=== PATIENT | male | born 1960 | race Caucasian/White ===

== ENCOUNTER 2021-08-07 14:14 | Outpatient (REF) | payer BC, SELFPAY ==
--- NOTE | ~2021-08-07 | XR_ITS ---
EXAMINATION: XR CHEST CLINICAL INFORMATION: Cough COMPARISON: None TECHNIQUE: 2 views of the chest were obtained. FINDINGS: There is no confluent acute parenchymal disease, pneumothorax, or pleural effusion. Heart normal size. No evidence of pulmonary edema. There are 2 densities seen about the right upper lobe which may represent regions of scarring or minimal focal parenchymal disease. XR/XR chest 2V IMPRESSION: No confluent acute parenchymal disease identified. 2 densities about the right upper lobe likely related to scarring.
== END 2021-08-07 14:15 | disposition home or self-care (01) ==
LOC: HO.HMGCX 14:14
PROVIDERS: Visit Provider Physician Assistant
DX: R05.9 Cough, unspecified (principal)
CPT/HCPCS: 71046

== ENCOUNTER 2021-12-06 11:50 | Outpatient (REF) | payer BC, SELFPAY ==
[2021-12-06 12:15] LABS: Binax Internal Control QC Valid; Binax Now Covid-19 Ag Negative (Negative)
== END 2021-12-06 11:51 | disposition home or self-care (01) ==
LOC: HO.HMGCLDS 11:50
PROVIDERS: Visit Provider Internal Medicine
DX: Z20.822 Contact with and (suspected) exposure to COVID-19 (principal); J06.9 Acute upper respiratory infection, unspecified
CPT/HCPCS: 87811

== ENCOUNTER 2023-09-09 14:39 | Outpatient (AMB) | payer BC, SELFPAY ==
[2023-09-09 14:42] VITALS: BP 130/70; PULSE 70; TEMP 36.6; O2SAT 95
--- NOTE | 2023-09-09 14:42 | AM.OFFWIN_ITS ---
Intake Vital Signs 09/09/23 14:42 Height 61 ft Weight 265 lb BMI 0.3 BP 130/70 Blood Pressure Location Rt brachial Position Sitting Pulse 70 Pulse Source Pulse Oximeter Temp 97.9 F Temp Source Oral Pulse Oximetry (%) 95 Oxygen Delivery Method Room Air Intake Visit Reasons: EP LT ear ache/Headache/ Dizzy Intake Note: Pt is here today for Lt ear ache/ headache, and dizziness. Pt states symptoms started this morning. Patient Tobacco Use Status: Never used Tobacco Allergies azithromycin [AZITHROMYCIN] Allergy (Intermediate, Verified 09/09/23 14:44) HIVES levofloxacin Allergy (Unknown, Verified 09/09/23 14:44) leg cramps lisinopril Adverse Reaction (Mild, Verified 09/09/23 14:44) Hives Erythrocin Allergy (Unknown, Uncoded 12/06/21 11:22) rash latex Allergy (Unknown, Uncoded 12/06/21 11:22) rash Do you need a note to return to daycare/school/sports/work: No HPI HPI Comments History of Present Illness0 Details 62 y/o female [facility]/o nasal congestion and left ear pain since this morning. Pt has h/o KRISTIN and has an Appointment with ENT for testing. Pt has an upcoming appointment Head/Sinus CT- Scan to r/o Infections, Polyps. [facility] Social History Patient Tobacco Use Status: Never used Tobacco Review of Systems Const All systems reviewed & are unremarkable except as noted in HPI and below Physical Exam Vital Signs: Last Vital Signs Temp 97.9 F 09/09/23 14:42 Pulse 70 09/09/23 14:42 BP 130/70 09/09/23 14:42 Pulse Ox 95 09/09/23 14:42 Oxygen Delivery Method Room Air 09/09/23 14:42 BMI result Body Mass Index 0.3 Const General: comfortable and no acute distress Orientation/consciousness: patient oriented x3 HEENT Head: Yes normocephalic Ears: external ears normal and TM abnormal with fluid behind the TM bilateral; not bulging, not bullous, not with effusion, not erythematous, not perforated and not retracted General nose exam: Abnormal mucous membranes and turbinates present boggy and erythematous Face and sinus: Yes sinuses nontender Mouth: moist mucous membranes Throat: Yes posterior oropharynx normal Resp Effort & Inspection: normal respiratory effort Auscultation: clear to auscultation bilaterally, no crackles, no rales, no rhonchi, no wheezes and no rubs tactile fremitus present: tactile fremitus absent Cardio Rate: regular rate Rhythm: regular rhythm Neuro General: patient oriented x3 Assessment & Plan Assessment & Plan (1) URI, acute: Comment: Code(s): J06.9 - Acute upper respiratory infection, unspecified Plan: - Vitals WNL - No ear infection, fluid behind both ears - Acetaminophen for pain relief - F/U with ENT as scheduled (12/06/23). Coding Level of Care Code Est Pt Level 3 (70338) Diagnoses URI, acute J06.9 Time Spent (min) 15
== END 2023-09-09 16:53 | disposition home or self-care (01) ==
PROVIDERS: PCP Physician Assistant Medical; Visit Provider Nurse Practitioner Family
DX: J06.9 Acute upper respiratory infection, unspecified (principal)
CPT/HCPCS: 99213

== ENCOUNTER 2024-01-07 13:33 | Outpatient (AMB) | payer BC, SELFPAY ==
--- OUTSIDE RECORDS SUMMARY | 2024-01-07 13:35 | XMS_ITS | Continuity of Care Document ---
Author Organization [facility] Adrianna hero Address [address] [place] [address] [address] [place] [address]- Care Team Providers Care Hand Brush Filler Name Role Phone Laith Falk MD Primary Care Physician Encounter [facility] Date(s): 03/17/23 - 04/16/23 [facility] [address] [place] [address]- Allergies, Adverse Reactions, Alerts Substance Reaction Severity Status clindamycin Active erythromycin Active Latex Persistent Moderate Active levoFLOXacin Muscle weakness of limb Acti ve Medications atorvastatin 20 mg oral tablet 1 tablet = 20 mg, By Mouth, Daily, # 30 tablet, 0 Refills, Maintenance, 06/22/21 10:16:00 EST, Tablet, Partial fill upon patient request if the prescription is for a schedule II opioid drug. Start Date: 06/22/21 Status: Ordered calcium (as carbonate)-vitamin D 500 mg-400 intl units oral tablet 1 tablet, By Mouth, 2 times a day, # 300 tablet, 0 Refills, Maintenance, 06/22/21 10:49:00 EST, Tablet, Partial fill upon patient request if the prescription is for a schedule II opioid drug. Start Date: 06/22/21 Status: Ordered DilTIAZem (Eqv-Cardizem CD) 180 mg/24 hours oral capsule, extended release 1 capsule = 180 mg, By Mouth, Daily, 0 Refills, Maintenance, 06/22/21 10:16:00 EST, Partial fill upon patient request if the prescription is for a schedule II opioid drug. Start Date: 06/22/21 Status: Ordered folic acid 1 mg oral tablet 1 mg, 1, tablet, By Mouth, Daily, # 30 tablet, Refills 0, Maintenance, 06/22/21 10:18:00 EST, Partial fill upon patient request if the prescription is for a schedule II opioid drug. Start Date: 06/22/21 Status: Ordered lisinopril 10 mg oral tablet 10 mg, 1, tablet, By Mouth, Daily, # 30 tablet, Refills 0, Maintenance, 06/22/21 10:13:00 EST, Partial fill upon patient request if the prescription is for a schedule II opioid drug. Start Date: 06/22/21 Status: Ordered lisinopril 40 mg oral tablet 1 tablet = 40 mg, By Mouth, Daily at bedtime, # 30 tablet, 0 Refills, Maintenance, Tablet Start Date: 12/19/12 Status: Ordered lorazepam 0.5 mg oral tablet 1 tablet = 0.5 mg, By Mouth, 2 times a day, PRN as needed for anxiety, 0 Refills, Maintenance, Tablet Start Date: 12/19/12 Status: Ordered Magnesium Carbonate = 400 mg, By Mouth, Daily, 0 Refills, Maintenance, 06/22/21 10:48:00 EST, Partial fill upon patientrequest if the prescription is for a schedule II opioid drug. Start Date: 06/22/21 Status: Ordered metformin 500 mg oral tablet 1 tablet = 500 mg, By Mouth, 2 times a day, # 180 tablet, 0 Refills, Maintenance, Tablet Start Date: 12/19/12 Status: Ordered pravastatin 20 mg oral tablet 1 tablet = 20 mg, By Mouth, Daily at bedtime, # 30 tablet, 0 Refills, Maintenance, Tablet Start Date: 12/19/12 Status: Ordered ProAir HFA 2 puffs, Inhalation, Every 6 hours, PRN Wheezing/Shortness of Breath, 0 Refills, Maintenance Start Date: 12/19/12 Status: Ordered thiamine 100 mg oral tablet 100 mg, 1, tablet, By Mouth, Daily, # 7 tablet, Refills 0, Maintenance, 06/22/21 10:17:00 EST, Partial fill upon patient request if the prescription is for a schedule II opioid drug. Start Date: 06/22/21 Stop Date: 06/29/21 Status: Ordered Problem List Condition Confirmation Course Effective Dates Status Health St [facility] Informant Obese class I Confirmed Active Social History Social History Type Response Smoking Status Never (less than 100 in lifetime) entered on: 08/06/22 Sex Patient Care team information Care Team Personnel Name: Laith Falk MD Position: [facility] Physician (General Medicine) Member Role: PCP Address: Address: [address] [place] [address] [place] [address]- Care Team Related Persons Name: NAYANAMICHI JULIET Address: [address] [place] [address]
--- NOTE | 2024-01-07 13:54 | AM.OFFWIN_ITS ---
Intake Vital Signs 01/07/24 13:55 Height 6 ft 1 in Weight 259 lb BMI 34.2 BP 128/66 Blood Pressure Location Lt brachial Position Sitting Pulse 60 Pulse Source Pulse Oximeter Temp 98.1 F Temp Source Oral Pulse Oximetry (%) 98 Oxygen Delivery Method Room Air Intake Visit Reasons: pain in left ear Intake Note: PT c/o LT ear pain. started 2 days ago. Worse when swallowing Patient Tobacco Use Status: Former Tobacco user Allergies azithromycin [AZITHROMYCIN] Allergy (Intermediate, Verified 01/07/24 13:55) HIVES levofloxacin Allergy (Unknown, Verified 01/07/24 13:55) leg cramps lisinopril Adverse Reaction (Mild, Verified 01/07/24 13:55) Hives Erythrocin Allergy (Unknown, Uncoded 01/07/24 13:55) rash latex Allergy (Unknown, Uncoded 01/07/24 13:55) rash Do you need a note to return to daycare/school/sports/work: No HPI HPI Comments History of Present Illness Details 63 y/o male patient who presents to the walk in clinic with c/o left ear pain x 2 days. Denies any URI symptoms. [facility] Social History Patient Tobacco Use Status: Former Tobacco user Review of Systems Const All systems reviewed & are unremarkable except as noted in HPI and below Physical Exam Vital Signs: Last Vital Signs Temp 98.1 F 01/07/24 13:55 Pulse 60 01/07/24 13:55 BP 128/66 01/07/24 13:55 Pulse Ox 98 01/07/24 13:55 Oxygen Delivery Method Room Air 01/07/24 13:55 BMI result Body Mass Index 34.2 Const General: comfortable and no acute distress Nutritional Appearance: obese Orientation/consciousness: patient oriented x3 HEENT Head: Yes normocephalic Ears: external ears normal and TM abnormal bulging on the left, erythematous on the left, with fluid behind the TM bilateral and retracted on the left General nose exam: Normal nasal mucous membranes and turbinates present Face and sinus: Yes sinuses nontender Mouth: moist mucous membranes Throat: Yes posterior oropharynx normal Resp Effort & Inspection: normal respiratory effort and able to speak in complete sentences Auscultation: clear to auscultation bilaterally, no crackles, no rales, no rhonchi and no wheezes Cardio Heart sounds: S1 normal heart sound present and S2 normal heart sound present Neuro General: patient oriented x3, gait normal and moves all extremities Psych Speech and movement: Normal speech and movement present Assessment & Plan Assessment & Plan (1) Otogenic otalgia of left ear: Code(s): H92.02 - Otalgia, left ear Plan: Acetaminophen and Ibuprofen for pain relief Take medicine as directed. Medications: New cetirizine (Zyrtec) 10 mg PO DAILY PRN 90 tabs 0RF allergy symptoms H92.02 - Otalgia, left ear ciprofloxacin-dexamethasone 0.3-0.1 % 4 drps otic (ear) left BID 7.5 mL 0RF 7 days H92.02 - Otalgia, left ear Coding Level of Care Code Est Pt Level 3 (69934) Diagnoses Otogenic otalgia of left ear H92.02 Time Spent (min) 15
[2024-01-07 13:55] VITALS: BP 128/66; PULSE 60; TEMP 36.7; O2SAT 98; BMI 34.2
== END 2024-01-07 14:16 | disposition home or self-care (01) ==
PROVIDERS: PCP Physician Assistant Medical; Visit Provider Nurse Practitioner Family
DX: H92.02 Otalgia, left ear (principal)
CPT/HCPCS: 99213

== ENCOUNTER 2024-02-17 15:39 | Outpatient (AMB) | payer BC, SELFPAY ==
--- NOTE | 2024-02-17 16:09 | MHC.OFFWIV ---
Intake Vital Signs 02/17/24 16:11 Height 6 ft 1 in Weight 257 lb BMI 33.9 BP 118/60 Blood Pressure Location Rt brachial Position Sitting Pulse 68 Pulse Source Pulse Oximeter Temp 98.2 F Temp Source Oral Pulse Oximetry (%) 98 Oxygen Delivery Method Room Air Intake Visit Reasons: EP RT side AB pain/Stomach bloating/Diarrhea Intake Note: pt c/o RT side abdominal pain since Wednesday, bloating and diarrhea Started this morning Patient Tobacco Use Status: Former Tobacco user Allergies azithromycin [AZITHROMYCIN] Allergy (Intermediate, Verified 02/17/24 16:14) HIVES levofloxacin Allergy (Unknown, Verified 02/17/24 16:14) leg cramps lisinopril Adverse Reaction (Mild, Verified 02/17/24 16:14) Hives Erythrocin Allergy (Unknown, Uncoded 02/17/24 16:14) rash latex Allergy (Unknown, Uncoded 02/17/24 16:14) rash Do you need a note to return to daycare/school/sports/work: No HPI HPI Comments History of Present Illness Details 63 y/o male patient who presents to the walk in clinic with c/o left lower abdominal pain since Wednesday. Reports one episode of diarrhea this morning, but otherwise feels bloated and gassy. He does have h/o Fatty liver with elevated LFTs. [facility] Social History Patient Tobacco Use Status: Former Tobacco user Review of Systems Const All systems reviewed & are unremarkable except as noted in HPI and below Physical Exam Vital Signs: Last Vital Signs Temp 98.2 F 02/17/24 16:11 Pulse 68 02/17/24 16:11 BP 118/60 02/17/24 16:11 Pulse Ox 98 02/17/24 16:11 Oxygen Delivery Method Room Air 02/17/24 16:11 BMI result Body Mass Index 33.9 Const General: cooperative, comfortable and no acute distress Nutritional Appearance: obese Orientation/consciousness: patient oriented x3 Resp Effort & Inspection: normal respiratory effort and able to speak in complete sentences Auscultation: clear to auscultation bilaterally Cardio Heart sounds: S1 normal heart sound present and S2 normal heart sound present GI Inspection: Yes obesity Palpation (GI): Soft to palpation, not firm, Tenderness to palpation present (GI) in the LLQ; not periumbilically, no guarding, not rigid, No hepatosplenomegaly present, no hernias and no masses Auscultation: Hyperactive bowel sounds present Rectal Exam - Male: Yes deferred Neuro General: patient oriented x3, gait normal and moves all extremities Psych Speech and movement: Normal speech and movement present Assessment & Plan Assessment & Plan (1) Left lower quadrant abdominal pain: Code(s): R10.32 - Left lower quadrant pain Plan: Weight loss Low fat and low sugar diet Pain probably related to Fatty liver and constipation Advised to f/u with PCP if pain continues Plan Ordered Reglan and Senna-Marian Medications: New sennosides-docusate sodium 8.6-50 mg (Laxative Stool Softener With Senna) 1 tab-cap PO BEDTIME 20 tabs 0RF R10.32 - Left lower quadrant pain metoclopramide HCl (Reglan) 10 mg PO Q6H PRN 20 tabs 0RF nausea and vomiting K59.00 - Constipation, unspecified, R10.32 - Left lower quadrant pain Coding Level of Care Code Est Pt Level 3 (57337) Diagnoses Left lower quadrant abdominal pain R10.32 Time Spent (min) 15
[2024-02-17 16:11] VITALS: BP 118/60; PULSE 68; TEMP 36.8; O2SAT 98; BMI 33.9
== END 2024-02-17 16:47 | disposition home or self-care (01) ==
PROVIDERS: PCP Physician Assistant Medical; Visit Provider Nurse Practitioner Family
DX: R10.32 Left lower quadrant pain (principal)
CPT/HCPCS: 99213

== ENCOUNTER 2024-06-03 11:33 | Outpatient (AMB) | payer BC, SELFPAY ==
--- OUTSIDE RECORDS SUMMARY | 2024-06-03 11:35 | XMS_ITS | Data Portability ---
Author Organization [facility], [address] Address [address] [place] [address] Assessment No assessment recorded. Plan of Treatment Reminders Order Date Submit Date Provider Last Modified By Organization Details Last Modified Time Details Appointments None recorded. Lab None recorded. Referral None recorded. Procedures None recorded. Surgeries None recorded. Imaging None recorded. Medication Orders triamterene 37.5 mg-hydrochl orothiazide 25 mg tablet 2021 [id number], [address], [place], [id number], 16:46:21 prednisone 10 mg tablet 2021 [facility] [employer] #[id number], [address], [place], [id number], 16:46:19 Patient TargetsNo targets recorded. Patient Instructions Encounter Date Encounter Id Patient Instructions Last Modified By Organization Details Last Modified Time 05/12/2022 [id number] angioedema: care instructions [email or web address] Not available 05/12/2022 16:46:08 I want you to stop the Lisinopril - because that may be causing your lips to swell and the HIVES. I know you have been on that medication for a while but this would be the most likely medication on your list to cause this reaction. I am going to start you on a different medication to help control you B/P but you need to call you doctor tomorrow to discuss a follow up visit to evaluate you B/P treatment plan. Please continue to monitor you blood pressure. Continue Benedryl. If you d/C this medication and the lips swell again it may be something you are eating or drinking. Please keep a food journal. You were prescribed Prednisone - Here is some general Information regarding this medication. 1. Make sure you take with Food 2. Do not take right before bedtime -this should be taken during the day because it may make you a little more wired. May keep you from sleeping. 3. Prednisone will increase glucose -so if you are a diabetic then you will need to monitor your glucose closely. Please d/c if glucose goes above 300. 4. Do not take this medication with Ibuprofen ER Immediately if you develop: 1. Shortness of breath 2. Throat Swelling 3. Wheezing 4. Swelling anywhere else on your body. Not available 05/12/2022 16:46:06 Reason for Referral None Reported. Problems Name Problem SNOMED Code Status Onset Date Resolution Date Notes Provider Name and Address Organization Details Recorded Time Diabetes mellitus 21312465 Active 2021 LILA gilmore [place] - [facility] 2 16:07:17 Hypertensive disorder 26658285 Active 2021 LILA gilmore, [place] - [facility] 2 16:07:24 Hyperlipidemia 85277843 Active 2021 LILA gilmore PA - [facility] 2 16:07:32 Gastroesophage al reflux disease 180817924 Active 2021 LILA gilmore, [place] - [facility] 2 16:07:38 Problem Notes None recorded. Procedures Surgical History Date Name Laterality Status Provider Name and Address Organization Details Recorded Time Appendectomy completed LILA HAGEN PA - [facility] 05/12/2022 16:09:22 manipulation of displaced nasal septum completed LILA HAGEN PA - [facility] 05/12/2022 16:09:31 Exploration of abdomen completed LILA HAGEN PA - [facility] 05/12/2022 16:09:59 Imaging Results None recorded. Procedure Notes None recorded. Medical Equipment None Reported. Allergies Allergen ID Allergen Name Allergen Category Reaction Reaction Severity Criticality Documentation Date Start Date Code Code System Note Provider Name and Address Organization Details Recorded Time 57784 erythromy rico medicatio n rash Not available Not available 05/12/2022 4053 RxNorm LILA LANDEROSMERRY null, PA - [facility] 2 16:01:28 76660 latex environme nt,medica tion rash Not available Not available 05/12/2022 96345 91 RxNorm LILA LANDEROSMERRY null, PA - [facility] 2 16:01:39 06657 levofloxa rico medicatio n muscle cramps Not available Not available 05/12/2022 83596 RxNorm LILA LANDEROSMARLENEND null, PA - [facility] 2 16:01:55 98211 clindamyc in Not available other Not available Not available 05/12/2022 2582 RxNorm LILA HAGEN null, PA - [facility] 2 16:02:18 Medications Name Sig Start Date Stop Date Status Note LastModified by Organization Details LastModified Time prednisone 10 mg tablet 3 pills po qd x 2 days, 2 pills po qd x 2 days, 1 pill po qd x 2 days 2021 active Not Available Not Available Not Avai lable diltiazem CD 180 mg capsule,exte nded release 24 hr Take 1 capsule every day by oral route. active Not Available Not Available No t Available triamterene 37.5 mg-hydrochlo rothiazide 25 mg tablet TAKE 1 TABLET BY MOUTH EVERY DAY active Not Available Not Available No t Available fluticasone propionate 50 mcg/actuatio n nasal spray,suspen damien [facility] 1 spray every day by intranasal route. active Not Available Not Available No t Available atorvastatin active Not Available Not Available Not Available omeprazole active Not Available Not Av ailable Not Available lorazepam active Not Available Not Simona ilable Not Available folic acid active Not Available Not Av ailable Not Available naproxen active Not Available Not Avai lable Not Available lisinopril active Not Available Not Av ailable Not Available glipizide active Not Available Not Simona ilable Not Available metformin active Not Available Not Simona ilable Not Available gabapentin active Not Available Not Av ailable Not Available thiamine HCl (bulk) active Not Available Not Available Not Available diclofenac sodium 1.5 % topical drops-mentho l 10 % roll-on combo pack active Not Available Not Available N ot Available albuterol sulf 90 mcg/actuatio n breath activated powder inhaler,sens or Inhale 2 puffs every 4 hours by inhalation route. active Not Available Not Available No t Available FreeStyle Chapo 2 Sensor active Not Available Not Available Not Available Vitals Date Recorded Body height Body mass index (BMI) Body weight Body temperature Respiratory rate Oxygen saturation Oxygen saturation in Arterial blood by Pulse oximetry Heart rate Systolic blood pressure Diastolic blood pressure Provider Name and Address Organization Details Last Updated DateTime 2 185.42 cm 35 kg/m2 911202. 98 g 97.4 [degF] 18 /min 99 % 99 % 75 /min 148 mm[Hg] 80 mm[Hg] LILA ALMEIDA [facility] 16:11:55 Social History Question Answer Notes LastModified by [employer] Details LastModified Time Tobacco Smoking Status Never Smoker LILA gilmore PA [facility] 05/12/2022 16:09:09 What Is Your Level Of Alcohol Consumption? Occasional Information not available 05/12/2022 Have You Had Direct Contact, Or Contact During Intimacy, With Monkeypox Rash, Scabs, Or Body Fluids From A Person With Monkeypox? No Information not available 05/12/2022 Do You Use Any Illicit Or Recreational Drugs? No Information not available 05/12/2022 Have You Recently Traveled Abroad? No Information not available 05/12/2022 Sex: Unknown Functional Status None recorded. Mental Status None recorded. Family History Relationship Description Onset Age of this Age Resolved Age Notes LastModified by Organization Details LastModified Time Father No current problems or disability Not available 11/2021 16:08:49 Mother No current problems or disability Not available 11/2021 16:08:49 Medical History No medical history recorded. 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 T78.3XXA Hypertensive disorder 38 143267 I10 Health Concerns Section Related Observation LastModified by Organization Detai ls LastModified Time None Recorded Concern Status LastModified by Organization Details LastModified Time None Recorded Advance Directives Directive None Recorded Payers Encounter Date Sequence Insurance Name Policy Number Policy Valle Covered Member ID Valle Member ID Guarantor Name 10/14/2019 1 [employer] - [place] (HMO) [id number] Jhonathan Blas [id number] 1 Jhonathan Blas 05/12/2022 1 [place] [employer] [place]PP[place]) Jhonathan Blas [id number] Jhonathan Blas Notes Date Note Type Note Provider Name and Address Organization Details Recorded Time 05/12/2022 text/html Facial ProblemReported bypatient.Onset/Timin g:date of onset:; 05/12/2022 when he woke up. Location:face bilateral Quality:tingling Severity:improving Context:diabetes Alleviating factors:Benedryl helped. Aggravating factors:none Associated Symptoms:no tinnitius; no nausea; no vomiting; no dizziness; no pain in the jaw; no nasal congestion; no difficulty chewing; no tenderness; no facial pain;erythema;swellin gNotes:The patient states that he woke up this morning and his lips were swollen. Mild tingling and numbness. Was affecting speach. Took Benedryl and it has reduced. The patient reports that since he got skin tags removed he has been having sporatic hives on his abdomen/trunk/back/fl anks. The patient is on lisinopril. He has not started any new medications. JUAN PABLO BEAL [facility] [place], [address], [place] - [facility] 05/13/2022 08:31:58
--- NOTE | 2024-06-03 12:12 | AM.OFFWIN_ITS ---
Intake Vital Signs 06/03/24 12:13 Weight 254 lb BP 128/78 Blood Pressure Location Lt brachial Position Sitting Pulse 82 Pulse Source Pulse Oximeter Temp 97.7 F Temp Source Oral Pulse Oximetry (%) 97 Oxygen Delivery Method Room Air Intake Visit Reasons: EP Sore throat, cough Intake Note: Patient here for sore throat and cough that has been present for about 2 weeks. Patient Tobacco Use Status: Former Tobacco user Allergies azithromycin [AZITHROMYCIN] Allergy (Intermediate, Verified 06/03/24 12:14) HIVES levofloxacin Allergy (Unknown, Verified 06/03/24 12:14) leg cramps lisinopril Adverse Reaction (Mild, Verified 06/03/24 12:14) Hives Erythrocin Allergy (Unknown, Uncoded 06/03/24 12:14) rash latex Allergy (Unknown, Uncoded 06/03/24 12:14) rash Do you need a note to return to daycare/school/sports/work: No HPI EP Sore throat, cough HPI Details Patient is a 63-year-old male with controlled diabetes and COPD, and is about 2 weeks out with upper respiratory infection symptoms, that are now starting to cause increased cough. [facility] Social History Patient Tobacco Use Status: Former Tobacco user Review of Systems Const All systems reviewed & are unremarkable except as noted in HPI and below Physical Exam Vital Signs: Last Vital Signs Temp 97.7 F 06/03/24 12:13 Pulse 82 06/03/24 12:13 BP 128/78 06/03/24 12:13 Pulse Ox 97 06/03/24 12:13 Oxygen Delivery Method Room Air 06/03/24 12:13 Results AMB Rapid Strep AMB Rapid Strep Negative Last Edit by RICHARD Oneill on 06/03/24 14:21 Results Reviewed Results Reviewed: Plain film chest x-ray unremarkable Assessment & Plan Assessment & Plan Plan 63-year-old male with COPD and type 2 diabetes, overall stable and is not on maintenance medication for the COPD. He reports that he started with upper respiratory infection symptoms over a week ago, and he is now experiencing increased cough. I think it is due to postnasal drip, likely from serous otitis media. His lung sounds are good and oxygen saturation is 97% on room air. His respiratory status is adequate, with no work of breathing. He requests chest x-ray today, which shows no acute changes. His flu COVID and RSV PCR results are pending. We discussed a trial of Esdras Alexis, which she is amenable to. I also advised that he start guaifenesin if his mucous starts to get thicker. He should follow up if he starts to develop any chest congestion symptoms, such as burning or pressure in the chest, shortness of breath, productive cough with mucus from the lungs, or other significant associated symptoms. He knows to go to the emergency room with worrisome symptoms. Orders: Orders SARS-CoV2/FLU/RSV Today J06.9 - Acute upper respiratory infection, unspecified BinaxNOW Covid-19 Ag Today Z20.822 - Contact with and (suspected) exposure to COVID-19 XR chest 2V Today R05.9 - Cough, unspecified AMB Rapid Strep Screen Today Z13.9 - Encounter for screening, unspecified Medications: New benzonatate 200 mg PO BID-TID PRN 20 caps 0RF cough Coding Level of Care Code Est Pt Level 4 (55488)
[2024-06-03 12:13] VITALS: BP 128/78; PULSE 82; TEMP 36.5; O2SAT 97
== END 2024-06-03 13:14 | disposition home or self-care (01) ==
PROVIDERS: PCP Physician Assistant Medical; Visit Provider Physician Assistant Medical
DX: Z13.9 Encounter for screening, unspecified (principal)

== ENCOUNTER 2024-06-03 11:33 | Outpatient (REF) | payer BC, SELFPAY ==
--- NOTE | ~2024-06-03 | XR_ITS ---
CLINICAL HISTORY: R05.9 - Cough, unspecified 2 view chest x-ray Comparison: None Findings: The lungs are clear. Normal heart size. Elongation of the aorta. No acute fracture. IMPRESSION: 1. No acute findings. This document has been electronically signed by: Adrienne Harmon MD on 06/03/2024 14:15:42
[2024-06-03 15:12] LABS: Influenza A PCR NEGATIVE (Negative); Influenza B PCR NEGATIVE (Negative); Resp Syncy Virus RNA Qual PCR NEGATIVE (Negative); SARS COV2 PCR INHOUSE NEGATIVE (Negative)
== END 2024-06-03 11:34 | disposition home or self-care (01) ==
LOC: HO.HMGCX 11:33
PROVIDERS: PCP Physician Assistant Medical; Visit Provider Physician Assistant Medical
DX: R05.9 Cough, unspecified (principal); J06.9 Acute upper respiratory infection, unspecified
CPT/HCPCS: 0241U; 71046; 87880

== ENCOUNTER → 2024-06-03 13:06 | Outpatient (BNV) | payer BC, SELFPAY | PROVIDERS: PCP Physician Assistant Medical; Visit Provider Radiology Diagnostic Radiology | DX: R05.9 Cough, unspecified (principal) | CPT/HCPCS: 71046 ==

== ENCOUNTER → 2024-06-21 15:15 | Outpatient (BNVA) | payer BC, SELFPAY | PROVIDERS: PCP Physician Assistant Medical ==

== ENCOUNTER → 2024-06-21 15:15 | Outpatient (AMB) | payer BC, SELFPAY ==
[2024-06-21 15:17] VITALS: BP 140/80; PULSE 77; O2SAT 98
--- NOTE | 2024-06-21 15:17 | MHC.OFFWIV ---
Intake Vital Signs 06/21/24 15:17 Weight 255 lb BP 140/80 H Blood Pressure Location Lt brachial Position Sitting Pulse 77 Pulse Source Pulse Oximeter Pulse Oximetry (%) 98 Oxygen Delivery Method Room Air Intake Visit Reasons: EP-b/l hand numbness, tingling, pain Intake Note: <del>P</del>atient here for bilat hand numbness and tingling that has been present for about 1 week Patient Tobacco Use Status: Former Tobacco user Allergies azithromycin [AZITHROMYCIN] Allergy (Intermediate, Verified 06/21/24 15:24) HIVES levofloxacin Allergy (Unknown, Verified 06/21/24 15:24) leg cramps lisinopril Adverse Reaction (Mild, Verified 06/21/24 15:24) Hives Erythrocin Allergy (Unknown, Uncoded 06/21/24 15:24) rash latex Allergy (Unknown, Uncoded 06/21/24 15:24) rash HPI HPI Comments History of Present Illness Details History of Present Illness - The patient is a 63-year-old male presenting with hand issues, specifically stiffness, numbness, and tingling consistent with Carpal Tunnel Syndrome. - Symptoms are bilateral with greater severity in the left hand. - There is preceding management with wrist braces and steroid injections, and worsening symptom severity noted. - Previous occupational history does not suggest repetitive strain activities as a contributory factor. - Current management is complicated by Stage 3 Chronic Kidney Disease. Physical Exam General: Cooperative, healthy appearing, comfortable, no acute distress and well developed Orientation: Patient oriented x3 Limitations: Full range of motion, but with stiffness and numbness in both hands Head: Normal to inspection Ears: Hearing grossly normal bilaterally Nose: Normal external nose present Face and sinus: Normal facial exam Eyes: Appearance normal, both eyes and all related structures Neck: Normal visual inspection and Yes full ROM Respiratory: Normal respiratory effort and able to speak in complete sentences. Clear to auscultation bilaterally Cardiovascular: Regular rate and rhythm. Normal S1 and S2 Skin: No rashes or lesions noted Neuro: Patient oriented x3 Extremities: as below [facility] Social History Patient Tobacco Use Status: Former Tobacco user Review of Systems Const All systems reviewed & are unremarkable except as noted in HPI and below Physical Exam Vital Signs: Last Vital Signs Pulse 77 06/21/24 15:17 BP 140/80 H 06/21/24 15:17 Pulse Ox 98 06/21/24 15:17 Oxygen Delivery Method Room Air 06/21/24 15:17 Extrem Right upper extremity: wrist Details: normal to inspection, tenderness Location: of the distal radius, of the dorsal wrist and of the volar wrist; not of the anatomic snuffbox, swelling and normal ROM and Extremity exam: right hand Details: normal to inspection, neuromotor exam normal, neurosensory exam abnormal and normal ROM of fingers Left upper extremity: wrist and hand Details: normal to inspection, normal capillary refill, neuromotor exam normal, neurosensory exam abnormal, tendon exam normal and normal ROM of fingers; no unusual warmth, no swelling, no abrasions, no lacerations and no ecchymosis Assessment & Plan Assessment & Plan (1) Wrist sprain: Code(s): S63.509A - Unspecified sprain of unspecified wrist, initial encounter Qualifiers: Encounter type: initial encounter Laterality: right Qualified Code(s): S63.501A - Unspecified sprain of right wrist, initial encounter Plan: The approach for Carpal Tunnel Syndrome will prioritize the relief of symptoms and explore surgical options. I recommend continued use of wrist braces, especially during nighttime, to mitigate symptoms. Naproxen will be prescribed cautiously, considering the patient's renal function. Coordination with a hand surgeon for potential operative management is advisable given the chronic nature and progression of symptoms. We will ensure to balance symptom management while monitoring renal function closely. The patient should consider contacting a hand surgeon for further evaluation and management options. Patient given wrist splints for each wrist. Patient was informed and verbally consented to the use of an ambient scribe for clinic note documentation during this visit. (2) Left wrist sprain: Code(s): S63.502A - Unspecified sprain of left wrist, initial encounter Qualifiers: Encounter type: initial encounter Qualified Code(s): S63.502A - Unspecified sprain of left wrist, initial encounter Plan: as above Medications: New naproxen 500 mg PO Q12H PRN 10 tabs 0RF pain Coding Level of Care Code New Pt Level 3 (49361) Diagnoses Sprain of right wrist, initial encounter S63.501A Encounter type: initial encounter Laterality: right Sprain of left wrist, initial encounter S63.502A Encounter type: initial encounter
--- OUTSIDE RECORDS SUMMARY | 2024-06-21 18:02 | XMS_ITS | Data Portability ---
Author Organization JUAN PABLO [facility], [address] Address [address] [place] [address] Assessment No assessment recorded. Plan of Treatment Reminders Order Date Submit Date Provider Last Modified By Organization Details Last Modified Time Details Appointments None recorded. Lab None recorded. Referral None recorded. Procedures None recorded. Surgeries None recorded. Imaging None recorded. Medication Orders triamterene 37.5 mg-hydrochl orothiazide 25 mg tablet 2021 [facility] #[id number], [address], [place], [phone], 16:46:21 prednisone 10 mg tablet 2021 [facility] #[id number], [address], [place], [phone], 16:46:19 Patient TargetsNo targets recorded. Patient Instructions Encounter Date Encounter Id Patient Instructions Last Modified By Organization Details Last Modified Time 05/12/2022 [id number] angioedema: care instructions Not available 05/12/2022 16:46:08 I want you [...] Address Organization Details Recorded Time Diabetes mellitus 68082279 Active 2021 LILA gilmore [place] - [facility] 2 16:07:17 Hypertensive disorder 30265143 Active 2021 LILA gilmore, [place] - [facility] 2 16:07:24 Hyperlipidemia 63934612 Active 2021 LILA gilmore [place] - [facility] 2 16:07:32 Gastroesophage al reflux disease 751769333 Active 2021 [facility], [facility] - [facility] [...] Name and Address Organization Details Recorded Time 24112 erythromy rico medicatio n rash Not available Not available 05/12/2022 4053 RxNorm LILA LANDEROSMERRY null, [place] - [facility] 2 16:01:28 76032 latex environme nt,medica tion rash Not available Not available 05/12/2022 96894 91 [facility]Norm LILA LANDEROSMERRY null, [place] - [facility] 2 16:01:39 13892 levofloxa rico medicatio n muscle cramps Not available Not available 05/12/2022 18127 RxNorm LILA LANDEROSMARLENEND null, [place] - [facility] 2 16:01:55 22930 clindamyc in Not available other Not available [...] propionate 50 mcg/actuatio n nasal spray,suspen damien [place] 1 spray every day by intranasal route. [...] Updated DateTime 2 185.42 cm 35 kg/m2 141840. 98 g 97.4 [degF] 18 /min 99 % 99 % 75 /min 148 mm[Hg] 80 mm[Hg] LILA ALMEIDA [facility] 16:11:55 Social History Question Answer Notes LastModified by Organizat ion Details LastModified Time Tobacco Smoking Status Never Smoker LILA gilmore [place] [facility] 05/12/2022 16:09:09 What Is Your Level [...] Diagnosis/Indication Diagnosis SNOMED-CT Code Diagnosis ICD10 Code Diagnosis Note [id number] [address] [address] 10/14/2019 16:31:24 10/14/2019 17:33:12 [id number] JUAN PABLO [facility]AL [address] [place] [address] 05/12/2022 14:26:50 05/12/2022 16:57:04 Allergic angioedema 155961030 T78.3XXA Hypertensive disorder 38 565941 I10 Health Concerns Section Related Observation LastModified by Organization Detai ls LastModified Time None Recorded Concern Status LastModified by Organization Details LastModified Time None Recorded Advance Directives Directive None Recorded Payers Encounter Date Sequence Insurance Name Policy Number Policy Valle Covered Member ID Valle Member ID Guarantor Name 10/14/2019 1 [facility] [employer] - DIRECT - [place] ZERO (HMO) [id number] Jhonathan Blas [id number] Jhonathan Blas 05/12/2022 1 [place] Jhonathan Blas [id number] Jhonathan Blas Notes Date Note Type [...] started any new medications. JUAN PABLO BEAL [address] [place], [address], [place] - [facility] 05/13/2022 08:31:58
== END ==
PROVIDERS: PCP Physician Assistant Medical; Visit Provider Physician Assistant
DX: S63.501A Unspecified sprain of right wrist, initial encounter (principal); S63.502A Unspecified sprain of left wrist, initial encounter

== ENCOUNTER 2024-08-16 15:37 | Outpatient (AMB) | payer BC, SELFPAY ==
--- NOTE | 2024-08-16 15:50 | MHC.OFFWIV ---
Intake Vital Signs 08/16/24 15:53 Height 6 ft 1 in Weight 250 lb BMI 33.0 BP 126/70 Blood Pressure Location Lt brachial Position Sitting Pulse 65 Pulse Source Pulse Oximeter Pulse Oximetry (%) 95 Oxygen Delivery Method Room Air Intake Visit Reasons: EP [place] eye? Intake Note: Patient here for right eye redness, itching that he noticed this morning. Patient Tobacco Use Status: Former Tobacco user Allergies azithromycin [AZITHROMYCIN] Allergy (Intermediate, Verified 08/16/24 15:54) HIVES levofloxacin Allergy (Unknown, Verified 08/16/24 15:54) leg cramps lisinopril Adverse Reaction (Mild, Verified 08/16/24 15:54) Hives Erythrocin Allergy (Unknown, Uncoded 08/16/24 15:54) rash latex Allergy (Unknown, Uncoded 08/16/24 15:54) rash Do you need a note to return to daycare/school/sports/work: No HPI HPI Comments History of Present Illness Details He presents to office with R eye compltaint Itchiness yesterday without trauma + redness R eye with irritation He wears glasses but no contacts + slight blurriness to R eye No trauma or injury No pain, 0/10 Slight drainage No URI symptoms, congestion, ST, cough PFSH Social History Patient Tobacco Use Status: Former Tobacco user Review of Systems Const Denies chills and Denies fever(s) Eyes Denies change in vision, Denies diplopia, Reports eye discharge, Reports irritation and Reports itchy eyes ENT Denies nasal congestion and Denies sore throat Resp Denies cough Musc Denies myalgias Aller/Immun Reports itchy eyes Physical Exam Vital Signs: Last Vital Signs Pulse 65 08/16/24 15:53 BP 126/70 08/16/24 15:53 Pulse Ox 95 08/16/24 15:53 Oxygen Delivery Method Room Air 08/16/24 15:53 BMI result Body Mass Index 33.0 General: Non-toxic, NAD. Speaking full sentences. Skin: Warm dry throughout Eye: EOMI, PERRL. + R eye conjuntival erythema. No active discharge. No visualized FB. HENT: Airway patent. Uvula midline. No pharyngeal erythema or edema. 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 Bilateral canals clear. TM non-erythematous, non-bulging. No TM perforation or hemotympanum noted. Neurology: Alert. No aphasia or facial droop. Gait without abnormality Psych: Good mood and affect Assessment & Plan Assessment & Plan (1) Bacterial conjunctivitis: Code(s): H10.9 - Unspecified conjunctivitis Plan: Patient seen and evaluated. Drops for R eye prescribed Avoid rubbing F/U with PCP Patient gave verbal understanding and had no additional questions or concerns at time of discharge All questions answered Medications: New polymyxin B sulf-trimethoprim 10,000 unit- 1 mg/mL while awake; do not exceed 6 doses in 24 hours. R eye 1 drp ophthalmic (eye) Q4-6H 10 mL 0RF 7 days Coding Level of Care Code Est Pt Level 3 (52727) Diagnoses Bacterial conjunctivitis H10.9
[2024-08-16 15:53] VITALS: BP 126/70; PULSE 65; O2SAT 95; BMI 33.0
--- OUTSIDE RECORDS SUMMARY | 2024-08-16 18:17 | XMS_ITS | Data Portability ---
Author Organization JUAN PABLO [facility] [facility], [address] Address [address] [place] [address] Assessment No assessment recorded. Plan of Treatment Reminders Order Date Submit Date Provider Last Modified By Organization Details Last Modified Time Details Appointments None recorded. Lab None recorded. Referral None recorded. Procedures None recorded. Surgeries None recorded. Imaging None recorded. Medication Orders triamterene 37.5 mg-hydrochl orothiazide 25 mg tablet 2021 [place] [facility] #[id number], [address], [place], [phone], 16:46:21 prednisone 10 mg tablet 2021 [facility] #[id number], [address], [place], [phone], 16:46:19 Patient TargetsNo targets recorded. Patient Instructions Encounter Date Encounter Id Patient Instructions Last Modified By Organization Details Last Modified Time 05/12/2022 [id number] angioedema: care instructions [email or web address] Not available 05/12/2022 16:46:08 I want you [...] 4. Swelling anywhere else on your body. [email or web address] Not available 05/12/2022 16:46:06 Reason for Referral None Reported. Problems Name Problem SNOMED Code Status Onset Date Resolution Date Notes Provider Name and Address Organization Details Recorded Time Diabetes mellitus 24240950 Active 2021 LILA gilmore [place] - [facility] 2 16:07:17 Hypertensive disorder 21062826 Active 2021 LILA gilmore, [place] - [facility] 2 16:07:24 Hyperlipidemia 39822215 Active 2021 LILA gilmore [place] - [facility] 2 16:07:32 Gastroesophage al reflux disease 884876554 Active 2021 [facility], [facility] - [facility] [...] Name and Address Organization Details Recorded Time 75960 erythromy rico medicatio n rash Not available Not available 05/12/2022 4053 RxNorm LILA LANDEROSMERRY null, [place] - [facility] 2 16:01:28 14084 latex environme nt,medica tion rash Not available Not available 05/12/2022 69916 91 RxNorm LILA LANDEROSMERRY null, [place] - [facility] 2 16:01:39 08690 levofloxa rico medicatio n muscle cramps Not available Not available 05/12/2022 27297 RxNorm LILA LANDEROSMARLENEND null, PA - [facility] 2 16:01:55 16644 clindamyc in Not available other Not available [...] propionate 50 mcg/actuatio n nasal spray,suspen damien [place] 1 spray every day by intranasal route. [...] Updated DateTime 2 185.42 cm 35 kg/m2 199301. 98 g 97.4 [degF] 18 /min 99 % 99 % 75 /min 148 mm[Hg] 80 mm[Hg] LILA ALMEIDA [facility] 16:11:55 Social History Question Answer Notes LastModified by Organizat ion Details LastModified Time Tobacco Smoking Status Never Smoker LILA gilmore PA [facility] 05/12/2022 16:09:09 What Is Your Level [...] SNOMED-CT Code Diagnosis ICD10 Code Diagnosis Note [id number] [address] [address] 10/14/2019 16:31:24 10/14/2019 17:33:12 [id number] JUAN PABLO BEAL [address] [place] [address] 05/12/2022 14:26:50 05/12/2022 16:57:04 Allergic angioedema [id number] T78.3XXA Hypertensive disorder 38 798965 I10 Health Concerns Section Related Observation LastModified by Organization Detai ls LastModified Time None Recorded Concern Status LastModified by Organization Details LastModified Time None Recorded Advance Directives Directive None Recorded Payers Encounter Date Sequence Insurance Name Policy Number Policy Valle Covered Member ID Valle Member ID Guarantor Name 10/14/2019 1 [facility] [employer] - DIRECT - [place] ZERO (HMO) [id number] Jhonathan Blas [id number] Jhonathan Blas 05/12/2022 1 [place] Jhonathan Blas [id number] Jhonathan Blas Notes Date Note Type [...] JUAN PABLO BEAL [address] [place], [address], [place] - [facility] 05/13/2022 08:31:58
--- OUTSIDE RECORDS SUMMARY | 2024-08-16 18:17 | XMS_ITS | Data Portability ---
Author Organization [place] - [facility], Allergy Address [address] [place] [phone] Assessment Encounter Date Assessment Date Assessment LastModified by Organization Details LastModified Time 12/24/2023 12/24/2023 Appears to have non-allergic rhinitis with PND exacerbated by vasodilation caused by antihypertensiv es. Suggest saline irrigations, consistent use of Atrovent as previously prescribed and RAST panel [email or web address] Not available 12/24/2023 12:02:05 Plan of Treatment Reminders Order Date Submit Date Provider Last Modified By Organization Details Last Modified Time Details Appointments None record ed. Lab unlist ed lab - allerg ens, zone 1 2023 024 OLIVA [facility] (Centralized Electronic Ordering - All Locations), Patient Can Go To The Location Of Their Choice, 07:07:01 nettle IgE Ab, serum 2023 024 Element RobotreGratcistein [facility] (Centralized Electronic Ordering - All Locations), Patient Can Go To The Location Of Their Choice, 16:11:07 bahia grass IgE Ab, quanti tative , serum 2023 024 Element RobotchreA.C. Moore [facility] (Centralized Electronic Ordering - All Locations), Patient Can Go To The Location Of Their Choice, 16:11:07 bermud a grass ige, serum 2023 024 jschreGratcistein [facility] (Centralized Electronic Ordering - All Locations), Patient Can Go To The Location Of Their Choice, 16:11:07 englis h planta in ige, serum 2023 024 lele [facility] (Centralized Electronic Ordering - All Locations), Patient Can Go To The Location Of Their Choice, [address] 4 16:11:08 ige, total, serum 2023 024 OLIVA [facility] (Centralized Electronic Ordering - All Locations), Patient Can Go To The Location Of Their Choice, [id number] 07:07:03 Referral None record ed. Procedures None record ed. Surgeries None record ed. Imaging None record ed. Medication Orders None record ed. Patient TargetsNo targets recorded. Patient InstructionsNo instructions recorded. Reason for Referral None Reported. Results Created Date Observation Date Name Description Value Unit Range Abnormal Flag Note LastModifiedBy Organization Detail LastModifiedTime 12/24/1912/24/2023 ALLER GENS, ZONE 1 class description Commen t Level s of Speci fic IgE Class Descr iptio n of Class ----- ----- ----- ----- ----- -- ----- ----- ----- ----- ----- < 0.10 0 Negat lynette 0.10 - 0.31 0/I Equiv ocal/ Low 0.32 - 0.55 I Low 0.56 - 1.40 II Moder ate 1.41 - 3.90 III High 3.91 - 19.00 IV Very High 19.01 - 100.0 0 V Very High >100. 00 Very High Not Available [facility] ([facility]) [address] [place], [address], 12/27/2023 07:07:01 12/24/19 24 12/25/2023 ALLER GENS, ZONE 1 L860-ZwK D pteronyssinu s 0.39 kU/L class I abnormal Not Available [facility] ([facility]) [address] [place], [address], 12/27/2023 07:07:01 12/24/19 24 12/25/2023 ALLER GENS, ZONE 1 D264-BhT D farinae 0.28 kU/L class 0/I abnormal Not Available [facility] ([facility]) [address] [facility], [place], [address], 12/27/2023 07:07:01 12/24/19 24 12/25/2023 ALLER GENS, ZONE 1 V991-ZvT CAT dander <0.10 kU/L class 0 Not Available [facility] ([facility]) [address] [facility], [place], [address], 12/27/2023 07:07:01 12/24/19 24 12/25/2023 ALLER GENS, ZONE 1 X327-PzC dog dander <0.10 kU/L class 0 Not Available [facility] ([facility]) [address] [facility], [place], [address], 12/27/2023 07:07:01 12/24/19 24 12/25/2023 ALLER GENS, ZONE 1 r906-IkY bermuda grass 0.10 kU/L class 0/I abnormal Not Available [facility] ([facility]) [address] [place], [address], 12/27/2023 07:07:01 12/24/19 24 12/25/2023 ALLER GENS, ZONE 1 q029-AdC bluegrass, [place] 0.10 kU/L class 0/I abnormal Not Available [facility] ([facility]) [address] [place], [address], 12/27/2023 07:07:01 12/24/19 24 12/25/2023 ALLER GENS, ZONE 1 y511-VhO bahia grass 0.13 kU/L class 0/I abnormal Not Available [facility] ([facility]) [address] [place], [address], 12/27/2023 07:07:01 12/24/19 24 12/25/2023 ALLER GENS, ZONE 1 P135-MlT cockroach, brazilian <0.10 kU/L class 0 Not Available [facility] ([facility]) [address] [facility], [place], [address], 12/27/2023 07:07:01 12/24/19 24 12/25/2023 ALLER GENS, ZONE 1 P454-SfE cladosporium herbarum <0.10 kU/L class 0 Not Available [facility] ([facility] [facility]) [address] [facility], [place], [address], 12/27/2023 07:07:01 12/24/19 24 12/25/2023 ALLER GENS, ZONE 1 V446-QuP aspergillus fumigatus <0.10 kU/L class 0 Not Available [facility] ([place] [facility]) [address] [facility], [place], [address], 12/27/2023 07:07:01 12/24/19 24 12/25/2023 ALLER GENS, ZONE 1 F352-OjP alternaria alternata <0.10 kU/L class 0 Not Available [facility] ([place] [facility]) [address] [facility], [place], [address], 12/27/2023 07:07:01 12/24/19 24 12/25/2023 ALLER GENS, ZONE 1 Q187-EvC oak, white 0.11 kU/L class 0/I abnormal Not Available [facility] ([place] [facility]) [address] [place], [address], 12/27/2023 07:07:01 12/24/19 24 12/25/2023 ALLER GENS, ZONE 1 M529-QzZ elm, brazilian 0.16 kU/L class 0/I abnormal Not Available [facility] ([place] [facility]) [address] [facility] [place], [address], 12/27/2023 07:07:01 12/24/19 24 12/25/2023 ALLER GENS, ZONE 1 D992-CjW maple/box elder 0.17 kU/L class 0/I abnormal Not Available [facility] ([facility]) [address] [facility], [place], [address], 12/27/2023 07:07:01 12/24/19 24 12/25/2023 ALLER GENS, ZONE 1 X063-TvZ ragweed, short <0.10 kU/L class 0 Not Available [facility] ([facility]) [address] [facility] [place], [address], 12/27/2023 07:07:01 12/24/19 24 12/25/2023 ALLER GENS, ZONE 1 X231-UvG pigweed, common <0.10 kU/L class 0 Not Available [facility] ([facility]) [address] [facility] [place], [address], 12/27/2023 07:07:01 12/24/19 24 12/27/2023 ALLER GENS, ZONE 1 Q117-BjH penicillium chrysogen 0.68 kU/L class II abnormal Not Available [facility] ([facility]) [address] [facility], [place], [address], 12/27/2023 07:07:01 12/24/19 24 12/27/2023 ALLER GENS, ZONE 1 T202-CwU mucor racemosus <0.10 kU/L class 0 Not Available [facility] ([facility]) [address] [place], [address], 12/27/2023 07:07:01 12/24/19 24 12/27/2023 ALLER GENS, ZONE 1 V725-KjV stemphylium herbarum <0.10 kU/L class 0 Not Available [facility] ([facility]) [address] [place], [address], 12/27/2023 07:07:01 12/24/19 24 12/27/2023 ALLER GENS, ZONE 1 R383-CkC common silver birch <0.10 kU/L class 0 Not Available [facility] ([facility]) [address] [place], [address], 12/27/2023 07:07:01 12/24/19 24 12/27/2023 ALLER GENS, ZONE 1 B131-WiL ramona, white 0.11 kU/L class 0/I abnormal Not Available [facility] ([facility] [facility]) [address], [place], [address], 12/27/2023 07:07:01 12/24/19 24 12/27/2023 ALLER GENS, ZONE 1 S769-EhQ hazelnut tree <0.10 kU/L class 0 Not Available [facility] ([place] [facility]) [address] [facility], [place], [address], 12/27/2023 07:07:01 12/24/19 24 12/27/2023 ALLER GENS, ZONE 1 X032-FxX hickory, white <0.10 kU/L class 0 Not Available [facility] ([place] [facility]) [address] [facility], [place], [address], 12/27/2023 07:07:01 12/24/19 24 12/27/2023 ALLER GENS, ZONE 1 K551-OaX white mulberry <0.10 kU/L class 0 Not Available [facility] ([place] [facility]) [address] [facility], [place], [address], 12/27/2023 07:07:01 12/24/19 24 12/27/2023 ALLER GENS, ZONE 1 K336-IsW cedar, mountain 0.20 kU/L class 0/I abnormal Not Available [facility] ([place] [facility]) [address] [facility], [place], [address], 12/27/2023 07:07:01 12/24/19 24 12/27/2023 ALLER GENS, ZONE 1 J780-YnA mugwort 0.20 kU/L class 0/I abnormal Not Available [facility] ([place] [facility]) [address] [facility] [place], [address], 12/27/2023 07:07:01 12/24/19 24 12/27/2023 ALLER GENS, ZONE 1 Y202-IfS plantain, citizen of [place] <0.10 kU/L class 0 Not Available [facility] ([place] [facility]) [address] [facility], [place], [address], 12/27/2023 07:07:01 12/24/19 24 12/27/2023 ALLER GENS, ZONE 1 U889-GmN sheep sorrel <0.10 kU/L class 0 Not Available [facility] ([facility]) [address] [facility], [place], [address], 12/27/2023 07:07:01 12/24/19 24 12/27/2023 ALLER GENS, ZONE 1 Z373-MnC nettle 0.18 kU/L class 0/I abnormal Not Available [facility] ([facility]) [address] [facility], [place], [address], 12/27/2023 07:07:01 12/24/19 24 12/25/2023 IMMUN OGLOB ULIN E, TOTAL immunoglobul in E, total 529 IU/mL 6-495 above high normal Not Available [facility] ([facility]) [address] [facility], [place], [address], 12/27/2023 07:07:02 12/24/19 24 10/13/2023 CT, sinus es, w/o contr ast No observ ation record ed. [email or web address] Not Available 12/05 13:39:13 Result Notes None recorded. Problems Name Problem SNOMED Code Status Onset Date Resolution Date Notes Provider Name and Address Organization Details Recorded Time Essential hypertens ion 47800557 Active 2015 Essential (primary) hypertensi on; Note: Date Diagnosed: 01/27/2016 5:27 PM (I10) Not Available [facility] 03:22:22 Bleeding from nose 634258712 Active 2015 [facility]; Note: Date Diagnosed: 01/27/2016 10:48 AM (R04.0) Not Available [facility] 4 03:22:22 Deviated nasal septum 535923247 Active 2015 Deviated nasal septum; Note: Date Diagnosed: 01/27/2016 5:27 PM (J34.2) Not Available [facility] 4 03:22:21 Chronic rhinitis 03380289 Active 2023 STEFFI SCOTT MD [address] [place] [address],[place] [address], Naila toribio, [place], [phone] , [facility] - [facility] 4 12:00:48 Posterior rhinorrhe a 12527687 Active 2023 STEFFI SCOTT MD [address] [place] [address],[place] [address], [place]a [place], [place], [address] , [facility] - [facility] 4 12:00:58 Allergic rhinitis 10362215 Active 2023 STEFFI SCOTT MD [address] [place] [address],[place] [address], [place]a [place], [place], [address] , [place] - [facility] [place] [facility] 12:02:16 Problem Notes None recorded. Procedures Surgical History Date Name Laterality Status Provider Name and Address Organization Details Recorded Time 06/07/19 appendectomy completed Mejia Sanchez [place] - [facility] 12/24/2023 11:18:53 06/07/18 Repair of nasal septum completed Mejiabijan Sanchez [place] - [facility] 12/24/2023 11:18:32 Imaging Results Imaging Date Name Status LastModified by Organiz ation Details LastModified Time 10/13/2023 CT, sinuses, w/o contrast completed [email or web address] Information not available 12/24/2023 13:39:13 Procedure Notes None recorded. Medical Equipment None Reported. Allergies Allergen ID Allergen Name Allergen Category Reaction Reaction Severity Criticality Documentation Date Start Date Code Code System Note Provider Name and Address Organization Details Recorded Time 141575 latex environme nt,medica tion other Not available Not available 10/19/2023 38716 91 RxNorm React ion: unkno wn, unspe isabella d;; Not Available [facility] 4 01:19:45 318436 erythromy rico ethylsucc inate medicatio n other Not available Not available 10/19/2023 4056 RxNorm React ion: unkno wn, unspe cifie d;; Not Available [facility] 4 01:19:45 Medications Name Sig Start Date Stop Date Status Note LastModified by Organization Details LastModified Time losartan 50 mg tablet TAKE 1 TABLET BY MOUTH DAILY active Not Available Not Available No t Available metformin 500 mg tablet TAKE 2 TABLETS BY MOUTH TWICE DAILY WITH BREAKFAST AND DINNER active Not Available Not Available No t Available atorvastat in 20 mg tablet TAKE 1 TABLET BY MOUTH DAILY active Not Available Not Available No t Available diltiazem CD 180 mg capsule,ex tended release 24 hr TAKE 1 CAPSULE BY MOUTH DAILY active Not Available Not Available No t Available Zyrtec 10 mg tablet Take 1 tablet by mouth at bedtime as directed active Medicatio n ID: [id number] Br and Name: Zyrtec Se nd Method: E-Prescri bed Subs Allowed: subs OK Medica tionGener icName: Zyrtec Not Available Not Available Not Available lorazepam 0.5 mg tablet TAKE 1 TABLET BY MOUTH DAILY NEEDED FOR ANXIETY active Not Available Not Available No t Available lisinopril 10 mg tablet 2014 active Medicatio n ID: [id number] Du ration Value: 30 Brand Name: lisinopri l Send Method: E-Prescri bed Subs Allowed: subs OK Specia l Instructi on: TAKE 1 TABLET BY MOUTH EVERY DAY Medic ationGene ricName: lisinopri l Not Available Not Available Not Available omeprazole 20 mg capsule,de layed release TAKE 1 CAPSULE BY MOUTH EVERY MORNING BEFORE BREAKFAST active Not Available Not Available No t Available folic acid 1 mg tablet TAKE 1 TABLET BY MOUTH DAILY active Not Available Not Available No t Available ipratropiu m bromide 42 mcg (0.06 %) nasal spray USE 2 SPRAYS IN EACH NOSTRIL TWICE DAILY active Not Available Not Available No t Available fluticason e propionate 50 mcg/actuat ion nasal spray,susp ension SHAKE LIQUID AND USE 2 SPRAYS IN EACH NOSTRIL EVERY DAY FOR 10 DAYS active Not Available Not Available No t Available glipizide 5 mg tablet TAKE 2 TABLETS BY MOUTH EVERY MORNING AND TAKE 1 TABLET BY MOUTH EVERY EVENING active Not Available Not Available No t Available amoxicilli n 875 mg-potassi um clavulanat e 125 mg tablet 2015 active Medicatio n ID: [id number] Du ration Value: 10 Brand Name: amoxicill in-pot clavulana kalyn Send Method: E-Prescri bed Subs Allowed: subs OK Medica tionGener icName: amoxicill in-pot clavulana te Not Available Not Available Not Available DILT-XR 240 mg capsule, extended release TAKE 1 CAPSULE BY MOUTH DAILY active Not Available Not Available No t Available Contour Next Test Strips USE TO TEST BLOOD SUGAR THREE TIMES DAILY active Not Available Not Available No t Available Accu-Chek Fastclix Lancet Drum USE TO CHECK BLOOD SUGAR THREE TIMES DAILY active Not Available Not Available No t Available FreeStyle Chapo 2 Sensor kit USE SENSOR DIRECTED EVERY 14 DAYS active Not Available Not Available No t Available FreeStyle Chapo 3 Sensor device USE ONE SENSOR EVERY 14 DAYS active Not Available Not Available No t Available Vitals Date Recorded Body height Body mass index (BMI) Body weight Provider Name and Address Organization Details Last Updated DateTime 12/24/2023 185.42 cm 34.3 kg/m2 924209.02 g Mejai Sanchez [place] - [facility] 12/24/2023 11:44:02 Social History None recorded. Functional Status None recorded. Mental Status None recorded. Family History Nothing Reported. Medical History Condition Response Diabetes Y Heart Problems Y Anemia Y Arthritis Y Sleep Disorder High Cholesterol Y Emphysema Y Liver Disease Y Hyperlipidemia Y Hypertension Y Asthma Y Kidney Disease Y Past Encounters Encounter ID Performer Location Encounter Start Date Encounter Closed Date Diagnosis/Indication Diagnosis SNOMED-CT Code Diagnosis ICD10 Code Diagnosis Note [id number] STEFFI SCOTT MD [facility] [address] [phone] 12/24/2023 10:39:57 12/24/2023 14:31:26 Chronic rhinitis 03754195 J31.0 Essential hypertension 88684674 I10 Posterior rhinorrhea 758 22921 R09.82 Allergic rhinitis 121160 04 J30.89 Health Concerns Section Related Observation LastModified by Organization Detai ls LastModified Time None Recorded Concern Status LastModified by Organization Details LastModified Time None Recorded Advance Directives Directive None Recorded Payers Encounter Date Sequence Insurance Name Policy Number Policy Valle Covered Member ID Valle Member ID Guarantor Name 12/24/2023 1 NANCY-[place]: NANCY (PPO) [id number] Jhonathan Blas [id number] Jhonathan Blas Notes Date Note Type Note Provider Name and Address Organization Details Recorded Time 12/24/2023 text/html KRISTIN and nasal congestion. Has chronic obstruction and PND. Tried multiple nasal sprays. Has HTNPrior septoplasty. CT trace sinus thickening. Reviewed with patient STEFFI KEARNEY MD [address] [place] [address], [phone], [place] - [facility] 12/24/2023 12:04:47
--- OUTSIDE RECORDS SUMMARY | 2024-08-16 18:18 | XMS_ITS | Clinical Summary ---
Author Organization [facility] Address [address] [place] [phone] Phone Care Team Providers Care Vat Packer Name Role Phone Pj Fontana Primary Care Provider [phone] Allergies Active Allergy Reactions Criticality Noted Date Comments Clindamycin 12/26/2019 Metallic taste Erythromycin Rash 01/10/2011 Latex Rash 08/06/2015 Levofloxacin Weakness Medium 08/02/2019 Lisinopril Numbness 05/17/2022 Medications albuterol HFA (PROAIR HFA ; PROVENTIL HFA ; VENTOLIN HFA) 90 mcg/actuation inhaler INHALE 2 PUFFS INTO THE LUNGS EVERY 6 HOURS NEEDED FOR COUGH OR WHEEZING OR SHORTNESS OF BREATH OR CHEST TIGHTNESS 8.5 g 2 04/18/20 24 Active blood-glucose meter kit Use to check blood sugars 3 times daily 11/01/19 20 Active blood-glucose sensor (FREESTYLE CHAPO 3 PLUS SENSOR MISC) 1 each by Not Applicable route. See Admin Instructions. 03/02/20 24 Active thiamine 100 mg tablet Take 1 tablet (100 mg total) by mouth 1 (one) time each day. 02/13/20 21 Active atorvastatin (LIPITOR) 20 mg tablet Take 1 tablet (20 mg total) by mouth 1 (one) time each day. 03/27/20 24 Active calcium carbonate-vitamin D 600 mg-10 mcg (400 unit) per tablet Take 1 tablet by mouth 2 (two) times a day. Active cetirizine (ZyrTEC) 10 mg tablet Take 1 tablet (10 mg total) by mouth 1 (one) time each day if needed. 01/07/20 24 Active diclofenac (Voltaren Arthritis Pain) 1 % topical gel Apply 2 g topically 4 (four) times a day if needed (arthritis pain). to affected area on hands/wrists 04/05/20 Active dilTIAZem XR (DILT-XR) 240 mg 24 hr capsule Take 1 capsule (240 mg total) by mouth 1 (one) time each day. 03/15/20 24 Active LORazepam (ATIVAN) 0.5 mg tablet Take 1 tablet (0.5 mg total) by mouth 1 (one) time each day if needed for anxiety. 02/10/20 24 Active losartan (COZAAR) 50 mg tablet Take 1 tablet (50 mg total) by mouth 1 (one) time each day. 09/29/19 24 Active magnesium oxide (MAG-OX) 400 mg (241.3 elemental magnesium) tablet Take 1 tablet (400 mg total) by mouth 2 (two) times a day. FOR 14 DAYS 08/07/19 23 Active metoclopramide (REGLAN) 10 mg tablet Take 1 tablet (10 mg total) by mouth every 6 (six) hours if needed (NAUSEA OR VOMITING). 02/17/20 24 Active omega-3 acid ethyl esters (LOVAZA) 1 gram capsule Take 2 capsules (2,000 mg total) by mouth. 12/02/19 23 Active omeprazole (PriLOSEC) [address] capsule Take 1 capsule (20 mg total) by mouth 1 (one) time each day before breakfast. for 360 days 10/11/19 24 025 Active senna-docusate (Stimulant Laxative Plus) 8.6-50 mg per tablet Take 1 tablet by mouth at bedtime. 02/17/20 24 Active triamcinolone (KENALOG) 0.1 % cream Apply to affected areas one or two times per day for two to four weeks 04/06/20 24 Active blood sugar diagnostic (Contour Next Test Strips) test strip USE TO TEST BLOOD SUGAR THREE TIMES DAILY 300 strip 1 05/11/20 24 Active blood-glucose sensor (FreeStyle Chapo 3 Plus Sensor) deviceIndications: Diabetic polyneuropathy associated with type 2 diabetes mellitus (CMS/HCC) APPLY 1 EVERY 15 DAYS 2 each 3 06/19/19 25 Active metFORMIN (GLUCOPHAGE) 500 mg tablet Take 2 tablets (1,000 mg total) by mouth 2 (two) times a day with meals. WITH BREAKFAST AND DINNER 360 tablet 1 07/06/19 25 Active glipiZIDE (GLUCOTROL) 5 mg tablet Take 1 tablet (5 mg total) by mouth 1 (one) time each day. 90 tablet 1 07/06/19 25 Active Accu-Chek Fastclix Lancet Drum lancets USE TO CHECK BLOOD SUGAR THREE TIMES DAILY 270 each 1 07/11/19 25 Active folic acid (FOLVITE) 1 mg tablet TAKE 1 TABLET BY MOUTH DAILY 90 tablet 1 07/12/19 25 Active aspirin 81 mg EC tablet Take 1 tablet (81 mg total) by mouth 1 (one) time each day. 025 Discontin ued(Thera py completed ) fluticasone propionate (FLONASE) 50 mcg/actuation nasal spray Administer 2 sprays into each nostril 1 (one) time each day. SHAKE LIQUID FOR 10 DAYS 03/13/20 025 Discontin ued(Thera py completed ) ipratropium (ATROVENT) 42 mcg (0.06 %) nasal spray Administer 2 sprays into affected nostril(s) 2 (two) times a day. 06/29/19 24 025 Discontin ued(Thera py completed ) Active Problems Problem Noted Date Diagnosed Date Carpal tunnel syndrome on both sides 07/11/2024 Obstructive sleep apnea 04/02/2022 Nocturnal hypoxia 02/28/2022 Overview (04/19/2024): Overnight oximetry on 02/06/2022 shows: 1. Lowest oxygen 85%. 2. Basal oxygen is 92% 3. Time under 88% is 15 minutes. supplemental oxygen may be indicated Esophageal dysmotility 11/04/2021 Hollis grade A esophagitis 11/04/2021 Left elbow pain 07/08/2021 Right carpal tunnel syndrome 07/08/2021 Aortic dilatation 11/10/2020 Chronic anemia 08/02/2019 Trigger finger, left index finger 01/07/2017 Overview (04/19/2024): Noted 2016 [facility] Home Sleep Apnea Test: Date 04/02/2022; BMI 34.9; AHI 12; average oxygen saturation 92% (lowest 80% without saturations <88% for 5% or more of study) - Obstructive Sleep Apnea - mild; without sleep related hypoventilation by 2021 home sleep apnea test. Diabetic polyneuropathy asso ciated with type 2 diabetes mellitus 07/09/2016 Varicose veins of leg with edema 07/09/2016 Condition not found 11/29/2015 Overview (04/19/2024): Varicose veins CKD (chronic kidney disease) stage 3, GFR 30-59 ml/min 07/22/2015 Diabetes mellitus 10/08/2014 Hyperlipidemia 01/05/2012 Diabetes type 2, controlled 05/05/2011 Fatty liver 01/21/2011 Hypertriglyceridemia 01/13/2011 Obesity 01/13/2011 Chronic back pain 01/10/2011 HTN (hypertension) 01/10/2011 Encounters Date Type Department Care Team Description 08/16/2024 Telephone Pulmonolgy [facility] 175 [facility] [address] [place] [phone] Christi Perez NP durable medical equipment 08/15/2024 Telephone Orthopedic Surgery [facility] 250 175 [facility] [address] [place] [phone] Rashawn Mccain MD Cancel surgery CTR right thand 08/14/2024 Telephone Endocrinology [address] [phone] Micaela Allen PA GLUCOSE READINGS 08/09/2024 9:45 AM EST Office Visit Orthopedic Surgery [facility] 175 [facility] [address] [place] [phone] Rashawn Mccain MD Carpal tunnel syndrome on both sides (Primary Dx); Trigger finger, left index finger; Acquired trigger finger of left middle finger; Arthritis of carpometacarpal (CMC) joint of left thumb 07/11/2024 11:00 AM EST Office Visit Orthopedic [facility] 250 [address] [facility] [address] [place] [phone] Rashawn Mccain MD Carpal tunnel syndrome on both sides (Primary Dx) 07/11/2024 Telephone Orthopedic Surgery [facility] 250 175 [facility] [address] [place] [phone] Radha Barnes MA Surgery 07/07/2024 3:30 PM EST Office Visit Orthopedic [facility] 175 [facility] [address] [place] [phone] Tanvi Lawler PA Carpal tunnel syndrome on both sides (Primary Dx) 07/06/2024 11:00 AM EST Office Visit Adult Medicine [facility] [address] [place] [phone] Peggy Sood PA Primary hypertension (Primary Dx); Mixed hyperlipidemia; Controlled type 2 diabetes mellitus without complication, without long-term current use of insulin ([facility]); Hollis grade A esophagitis; Stage 3a chronic kidney disease (CKD) ([facility]); Elevated PSA; Magnesium deficiency; Macrocytic anemia 06/29/2024 2:30 PM EST Office Visit Orthopedic Surgery [facility] 175 [facility] [address] [place] [phone] Tanvi Lawler PA Carpal tunnel syndrome on both sides (Primary Dx) 05/23/2024 10:30 AM EST Office Visit Pulmonolgy [facility] 175 [facility] [address] [place] [phone] Christi Perez NP Obstructive sleep apnea (Primary Dx); Nocturnal hypoxia; Class 1 obesity with serious comorbidity in adult, unspecified BMI, unspecified obesity type from Last 3 Months Immunizations Name Administration Dates Next Due Influenza Quadravalent, MDCK , 0.5ml, preservative free (Flucelvax) 6mo and older 02/20/2022,04/14/2021,04/05/2020,2019,05/11/2018 Influenza trivalent, 0.5mL, preservative free (Fluarix; FluLaval; Fluzone) ages 6mo and older (Afluria) 3 years and older 07/09/2016,02/27/2015,05/24/2012,2010 Td Tetanus diptheria (Tdvax) 7yo and older 11/19/2021 Tdap Tetanus diptheria acell ular pertussis (Boostrix; Adacel) 7yo and older 05/05/2011 Surgical History Surgery Date Site/Laterality Comments APPENDECTOMY PROCEDURE: CA APPENDECTOMY HERNIA REPAIR PROCEDURE: HISTORICAL HERNIA REPAIR/UMB OTHER SURGICAL HISTORY PROCEDURE: ---- OTHER ----; COMMENT: deviated septum COLONOSCOPY 05/11/2011 PROCEDURE: CA COLONOSCOPY FLX DX W/COLLJ SPEC WHEN PFRMD; COMMENT: normal COLONOSCOPY 10/16/2021 PROCEDURE: HISTORICAL COLONOSCOPY; COMMENT: muslu - 5 polyps repeat 3 years OTHER SURGICAL HISTORY 10/16/2021 PROCEDURE: UPPER GI ENDOSCOPY, REMOVE LESION; COMMENT: muslu - normal BREAST BIOPSY Medical History Medical History Date Comments Chronic back pain 01/10/2011 DX:Chronic kathy k pain HTN (hypertension) 01/10/2011 DX:HTN (hyper tension) Anxiety 01/10/2011 DX:Anxiety Obesity 01/13/2011 DX:Obesity Hypertriglyceridemia 01/13/2011 DX:Hypertri glyceridemia Fatty liver 01/21/2011 DX:Fatty liver Diabetes type 2, controlled (CMS/HCC) 05/05/2011 DX:Diabetes type 2, controlled ([facility]) Hyperlipidemia 01/05/2012 DX:Hyperlipidemi a Diabetes mellitus (CMS/HCC) 10/08/2014 DX:D iabetes mellitus (HCC) CKD (chronic kidney disease) stage 3, GFR 30-59 ml/min (CMS/HCC) 07/22/2015 DX:CKD (chronic kidney dise ase) stage 3, GFR 30-59 ml/min ([facility]) Varicose veins 11/29/2015 DX:Varicose vein s Diabetic polyneuropathy asso ciated with type 2 diabetes mellitus (CMS/HCC) 07/09/2016 DX:Diabetic polyneu ropathy associated with type 2 diabetes mellitus (HCC) Varicose veins of leg with edema 07/09/2016 DX:Varicose veins of leg with edema Trigger finger, left index finger 01/07/2017 DX:Trigger finger, left index finger; COMMENT: Noted 2016 Chronic anemia 08/02/2019 DX:Chronic anemi a Esophageal dysmotility 11/04/2021 DX:Esopha geal dysmotility Hollis grade A esophagitis 11/04/2021 DX:Hollis grade A esophagitis Asthma Dysphagia GERD (gastroesophageal reflux disease) Chronic pain disorder Arthritis Joint pain Family History Medical History Relation Name Comments Stroke Father Diabetes Mother HTN Relation Name Status Comments Brother 1 Alive Brother 2 Alive Brother 3 Alive Father Alive dementia, mi, c va Mother Alive dm, dementia Social History Tobacco Use Types Packs/Day Years Used Date Smoking Tobacco: Former Cigarettes 1.5 20.6 0 11/05/1978 - 06/07/1999 Smokeless Tobacco: Never Tobacco Cessation:Counseling Given: Not Answered Alcohol Use Standard Drinks/Week Comments No 0 (1 standard drink = 0.6 oz pur e alcohol) Sex and Gender Information Value Date Recorded Sex Assigned at Not on file Legal Sex Male 5:29 AM EST Gender Identity Not on file Sexual Orientation Not on file Obstetrics History Last Filed Vital Signs Vital Sign Reading Time Taken Comments Blood Pressure 130/66 07/06/2024 11:38 AM EST Pulse 72 07/06/2024 11:06 AM EST Temperature 36.8 ??C (98.2 ??F) 07/06/2024 11:[address] Respiratory Rate 16 07/06/2024 11:06 AM EST Oxygen Saturation 97% 05/23/2024 10:42 AM EST Inhaled Oxygen Concentration - - Weight 111 kg (245 lb) 08/09/2024 9:52 AM EST Height 185.4 cm (6' 1 ) 08/09/2024 9:52 AM EST Body Mass Index 32.32 08/09/2024 9:52 AM EST Plan of Treatment Upcoming Encounters Date Type Department Care Team (Late st Contact Info) Description 08/22/2024 11:00 AM EDT Office Visit [facility] Hematology Oncology [address] [place] [phone] Gila Amaral, [address] [place] [address] 08/30/2024 10:00 AM EDT Office Visit Endocrinology - [place] [address] [place] [phone] Micaela Allen PA [address] [place] [address] 09/01/2024 11:15 AM EDT Office Visit Orthopedic Surgery - [facility] 250 175 [facility] [address] [place] [phone] Rashawn Mccain MD 175 [facility] 140 [place] [address] 09/14/2024 1:00 PM EDT Office Visit Vascular Surgery - [place] 300 [facility] [address] [place] [phone] Hillary Valles MD 300 [facility] [address] [place] [address] 09/29/2024 10:45 AM EDT Office Visit Adult Medicine [facility] [address] [place] [phone] Pj Fontana, PA [address] [place] [phone] 11/22/2024 1:30 PM EDT Ancillary Procedure [facility] 101 300 [facility] [address] [place] [phone] 12/29/2024 8:00 AM EDT Appointment [facility] Ultrasound [address] [place] [phone] 12/29/2024 9:30 AM EDT Appointment [facility] Ultrasound [address] [place] [phone] 01/03/2025 10:45 AM EDT Office Visit Adult Medicine [facility] [address] [place] [phone] Pj Fontana, PA [address] [place] [address] 01/24/2025 10:30 AM EDT Office Visit Vascular Surgery - [place] 300 [facility] [address] [place] [phone] Hillary Valles MD [address] [address] Health Maintenance Due Date Last Done Comments Hepatitis A Vaccines (1 of 2 - Risk 2-dose series) 1977 Pneumococcal Vaccine: 50+ Years (1 of 2 - PCV) 1977 Pneumococcal Vaccine: Pediatrics (0 to 5 Years) and At-Risk Patients (6 to 64 Years) (1 of 2 - PCV) 1977 Zoster Vaccines (1 of 2) 2008 Hepatitis B Vaccines (1 of 3 - Risk 3-dose series) 2018 RSV Immunization Patients 60+ Years Old (1 - Risk 60-74 years 1-dose series) 2018 Abdominal Aortic Aneurysm (AAA) Screen 05/16/2022 Depression Screening 05/16/2022 Medicare Annual Wellness Visit 05/16/2022 Social Influencers of Health Screening 05/16/2022 Falls Risk Assessment 11/08/2023 COVID-19 Vaccine ( season) 2024 10/23/2021, 10/25/2020, 09/27/2020 Influenza Vaccine (#1) 2024 , 04/14/2021, 04/05/2020, Additional history exists Diabetes: Annual Foot Exam 08/05/2024 08/06/2023 Colorectal Cancer Screening: Colonoscopy 10/16/2024 10/16/2021 Diabetes: Blood Sugar Control Test (HGBA1C) 12/26/2024 06/28/2024, 04/04/2024, 04/04/2024, Additional history exists Diabetes: Annual Retina Eye Exam 01/04/2025 01/05/2024 Diabetes: Annual Urine Albumin-Creatinine Ratio (uACR) 06/28/2025 06/28/2024, 04/04/2024 Diabetes: Annual GFR (Glomerular Filtration Rate) 06/28/2025 06/28/2024, 04/04/2024, 04/04/2024, Additional history exists Hypertension/CHF/CAD Annual BMP Blood Test 06/28/2025 06/28/2024, 04/04/2024, 04/04/2024, Additional history exists Cholesterol Screening (Lipid Panel) 06/28/2029 06/28/2024, 04/04/2024, 04/04/2024, Additional history exists DTaP,Tdap,and Td Vaccines (3 - Td or Tdap) 11/20/2031 11/19/2021, 05/05/2011 Hepatitis C Screening Completed 09/29/2011 HIB Vaccines Aged Out No longer eligi ble based on patient's age to complete this topic HPV Vaccines Aged Out No longer eligi ble based on patient's age to complete this topic IPV Vaccines Aged Out No longer eligi ble based on patient's age to complete this topic MMR Vaccines Aged Out No longer eligi ble based on patient's age to complete this topic Meningococcal ACWY Vaccine Aged Out N o longer eligible based on patient's age to complete this topic Meningococcal B Vacine Aged Out No lo nger eligible based on patient's age to complete this topic RSV Immunization Patients Under 20 months Aged Out No longer eligible based on patient's age to complete this topic Varicella Vaccines Aged Out No longer eligible based on patient's age to complete this topic Procedures Procedure Name Priority Date/Time Associated Diagnosis Comments CA INJECTION CARPAL TUNNEL THERAPEUTIC Routine 06/29/2024 2:30 PM EST Carpal tunnel syndrome on both sides LIPID PANEL WITH REFLEX TO DIRECT LDL Routine 06/28/2024 1:45 PM EST Diabetes mellitus (CMS/HCC) COMPREHENSIVE METABOLIC PANEL Routine 06/28/2024 1:45 PM EST Diabetes mellitus (CMS/HCC) MICROALBUMIN CREATININE URINE RATIO Routine 06/28/2024 1:45 PM EST Diabetes mellitus (CMS/HCC) COMPLETE BLOOD COUNT Routine 06/28/2024 1:45 PM EST Diabetes mellitus (CMS/HCC) MAGNESIUM Routine 06/28/2024 1:45 PM EST Diabetes mellitus (CMS/HCC) HEMOGLOBIN A1C Routine 06/28/2024 1:45 PM EST Diabetes mellitus (CMS/HCC) EXTERNAL CLINICAL LAB 06/05/2024 EXTERNAL XRAY REPORT 06/03/2024 DIABETES EYE EXAM Routine 01/05/2024 DIABETES FOOT EXAM Routine 08/06/2023 COLONOSCOPY Routine 10/16/2021 HEPATITIS C SCREENING Routine 09/29/2011 from Last 3 Months or Most Recently Relevant to Health Maintenance Results * CA INJECTION CARPAL TUNNEL THERAPEUTIC (06/29/2024 2:30 PM EST) Tanvi Fajardo PA - 06/29/2024 2:30 PM EST JUAN PABLO Castillo ? 06/29/2024 ??2:59 PM Hand / UE Inj/Asp: L carpal tunnel for carpal tunnel syndrome Indications: pain Details: 25 G needle, volar approach Medications: 0.5 mL lidocaine 1 %; 40 mg triamcinolone acetonide 40 mg/mL Informed Consent: ??Laterality: ??Left ??Relevant images/test results available and reviewed: yes ?Health status cleared: ??Yes ??Procedure/treatment, purpose, treatment alternatives, risks/potential complications and benefits explained: yes ?Risk/complications/benefits details: ??Risks of infection, thinning of the skin and temporary skin discoloration discussed. ??Discussed risks of temporary increased pain after injection and swelling and mild redness at injection site for couple days. ??Explained occasionally cortisone injection can cause facial flushing temporarily. ??Benefits pain management. ??For postop injection pain ice, Tylenol and/or NSAIDs if patient can take ??Patient questions answered: yes ?Patient agrees, verbalizes understanding, and wants to proceed: yes ?Consent given by: ??Patient ??Informed consent discussion completed by Physician/APURVA with patient: ?? Verbal ??Pre-procedure timeout performed: yes ?? us Tanvi ALMEIDA IN CLINIC/BEDSIDE ORDERABLES Final Result * Lipid panel with reflex to direct LDL (06/28/2024 1:45 PM EST) Cholesterol 148 0 - 200 mg/dL LAB CHEMISTRY METHOD 06/28/2024 5:54 PM EST [facility] Triglycerides 93 0 - 150 mg/dL LAB CHEMISTRY METHOD 06/28/2024 5:54 PM [facility] HDL 63 >=40 mg/dL LAB CHEMISTRY METHOD 06/28/2024 5:54 PM [facility] LDL Calculated 66 0 - 100 mg/dL LAB CHEMISTRY METHOD 06/28/2024 5:54 PM EST [facility] VLDL Cholesterol Luis Eduardo 18.6 mg/dL LAB CHEMISTRY METHOD 06/28/2024 5:54 PM [facility] Non HDL Chol. (LDL+VLDL) 85 <145 mg/dL LAB CHEMISTRY METHOD 06/28/2024 5:54 PM [facility] Chol/HDL Ratio 2.3 0.0 - 4.4 LAB CHEMISTRY METHOD 06/28/2024 5:54 PM [facility] Blood Venous blood specimen / Unknown Venipuncture / Unknown 06/28/2024 1:45 PM EST 06/28/2024 1:45 PM EST us Peggy ALMEIDA LAB BLOOD ORDERABLES Final Resul t [facility] [address] [place] [address], * (ABNORMAL) Microalbumin creatinine urine ratio (06/28/2024 1:45 PM EST) Creatinine, Urine 14.0 mg/dL LAB CHEMISTRY METHOD 06/28/2024 5:58 PM [facility] Microalb, Ur 11.5 0.0 - 29.0 mg/L LAB CHEMISTRY METHOD 06/28/2024 5:58 PM [facility] Microalb/Creat Ratio 82(H) <30 mg/g creat LAB CHEMISTRY METHOD 06/28/2024 5:58 PM [facility] Urine Urine specimen obtained by clean catch procedure / Unknown Non-blood Collection / Unknown 06/28/2024 1:45 PM EST 06/28/2024 1:45 PM EST us Peggy ALMEIDA LAB URINE ORDERABLES Final Resul t [facility] [address] [place] [address], * (ABNORMAL) Complete blood count (06/28/2024 1:45 PM EST) WBC 6.9 4.8 - 10.8 K/mcL LAB HEMETOLOGY METHOD 06/28/2024 4:29 PM [facility] RBC 4.00(L) 4.50 - 5.50 M/mcL LAB HEMETOLOGY METHOD 06/28/2024 4:29 PM [facility] Hemoglobin 12.9(L) 13.5 - 17.5 g/dL LAB HEMETOLOGY METHOD 06/28/2024 4:29 PM [facility] Hematocrit 40.5(L) 42.0 - 54.0 % LAB HEMETOLOGY METHOD 06/28/2024 4:29 PM [facility] MCV 101.0(H) 79.0 - 98.0 FL LAB HEMETOLOGY METHOD 06/28/2024 4:29 PM [facility] MCH 32.2(H) 27.0 - 32.0 pcg LAB HEMETOLOGY METHOD 06/28/2024 4:29 PM [facility] MCHC 31.9(L) 32.0 - 37.0 g/dL LAB HEMETOLOGY METHOD 06/28/2024 4:29 PM [facility] RDW 12.9 11.0 - 15.0 % LAB HEMETOLOGY METHOD 06/28/2024 4:29 PM [facility] Platelets 226 130 - 400 K/mcL LAB HEMETOLOGY METHOD 06/28/2024 4:29 PM EST [facility] MPV 9.6 7.0 - 11.0 FL LAB HEMETOLOGY METHOD 06/28/2024 4:29 PM EST [facility] NRBC 0.0 <1.0 % LAB HEMETOLOGY METHOD 06/28/2024 4:29 PM EST [facility] NRBC Absolute 0.00 <0.10 K/mcL LAB HEMETOLOGY METHOD 06/28/2024 4:29 PM EST [facility] Blood Venous blood specimen / Unknown Venipuncture / Unknown 06/28/2024 1:45 PM EST 06/28/2024 1:45 PM EST us Peggy Barrie PA LAB BLOOD ORDERABLES Final Resul t Performing Organization Address City/[facility]/ZIP Co de Phone Number [facility] [address] [place] [address], [place] [phone] * (ABNORMAL) Magnesium (06/28/2024 1:45 PM EST) [facility] Magnesium 1.7(L) 1.9 - 2.6 mg/dL LAB CHEMISTRY METHOD 06/28/2024 5:47 PM EST [facility] Blood Venous blood specimen / Unknown Venipuncture / Unknown 06/28/2024 1:45 PM EST 06/28/2024 1:45 PM EST us [employer] Sood PA LAB BLOOD ORDERABLES Final Resul t [facility] [address] [place] [address], [place] [phone] * Hemoglobin A1c (06/28/2024 1:45 PM EST) Pathologist [facility] Hemoglobin A1C 6.1 <6.5 % LAB CHEMISTRY METHOD 06/29/2024 11:11 AM [facility] Mean Bld Glu Estim. 128 mg/dL LAB CHEMISTRY METHOD 06/29/2024 11:11 AM [facility] Blood Venous blood specimen / Unknown Venipuncture / Unknown 06/28/2024 1:45 PM EST 06/28/2024 1:45 PM EST us Peggy Barrie PA LAB BLOOD ORDERABLES Final Resul t [facility] [address] [place] [address], [place] [phone] * Comprehensive metabolic panel (06/28/2024 1:45 PM EST) Sodium 136 133 - 145 mmol/L LAB CHEMISTRY METHOD 06/28/2024 5:54 PM [facility] Potassium 4.0 3.5 - 5.5 mmol/L LAB CHEMISTRY METHOD 06/28/2024 5:54 PM [facility] Chloride 102 96 - 110 mmol/L LAB CHEMISTRY METHOD 06/28/2024 5:54 PM [facility] CO2 29 21 - 32 mmol/L LAB CHEMISTRY METHOD 06/28/2024 5:54 PM [facility] Anion Gap 5 3 - 11 LAB CHEMISTRY METHOD 06/28/2024 5:54 PM [facility] Glucose 80 70 - 100 mg/dL LAB CHEMISTRY METHOD 06/28/2024 5:54 PM [facility] BUN 22 5 - 25 mg/dL LAB CHEMISTRY METHOD 06/28/2024 5:54 PM [facility] Creatinine 1.19 0.70 - 1.30 mg/dL LAB CHEMISTRY METHOD 06/28/2024 5:54 PM [facility] eGFR 68 >=60 mL/min/1. 73m2 LAB CHEMISTRY METHOD 06/28/2024 5:54 PM EST [facility] Comment:Calculation based on the??Chronic Kidney Disease Epidemiology Collaboration (CKD-EPI) equation refit??without adjustment for race. BUN/Creatinine Ratio 18.5 LAB CHEMISTRY METHOD 06/28/2024 5:54 PM [facility] Calcium 8.7 8.5 - 10.5 mg/dL LAB CHEMISTRY METHOD 06/28/2024 5:54 PM [facility] AST (SGOT) 23 10 - 42 unit/L LAB CHEMISTRY METHOD 06/28/2024 5:54 PM [facility] ALT (SGPT) 38 10 - 60 unit/L LAB CHEMISTRY METHOD 06/28/2024 5:54 PM [facility] Alkaline Phosphatase 64 42 - 121 unit/L LAB CHEMISTRY METHOD 06/28/2024 5:54 PM [facility] Total Protein 7.4 6.0 - 8.0 g/dL LAB CHEMISTRY METHOD 06/28/2024 5:54 PM [facility] Albumin 4.0 3.2 - 5.0 g/dL LAB CHEMISTRY METHOD 06/28/2024 5:54 PM [facility] Total Bilirubin 0.5 0.0 - 1.4 mg/dL LAB CHEMISTRY METHOD 06/28/2024 5:54 PM [facility] Blood Venous blood specimen / Unknown Venipuncture / Unknown 06/28/2024 1:45 PM EST 06/28/2024 1:45 PM EST us Peggy Barrie ALMEIDA LAB BLOOD ORDERABLES Final Resul t [facility] [address] [place] [address], * External clinical lab (06/05/2024) us Provider [facility] LAB BLOOD ORDERABLES Fin al Result * External Xray Report (06/03/2024) Anatomical Region Laterality Modality Radiographic Rosana ging Provider [facility] IMG XR PROCEDURES Final Result * Diabetes Eye Exam (01/05/2024) [facility] Diabetes: Annual Retina Eye Exam Abstracted Historical Provider HEALTH MAINTENANCE Final Result * Diabetes Foot Exam (08/06/2023) Pathologist [facility] Diabetes: Annual Foot Exam Abstracted Result [facility] Historical Provider HEALTH MAINTENANCE Final Result * Colonoscopy (10/16/2021) Pathologist [facility] Colonoscopy No interpretation , abstracted Anatomical Region Laterality Modality Other Result [facility] Provider HEALTH MAINTENANCE Final Result * Hepatitis C Screening (09/29/2011) Pathologist [facility] Hepatitis C Screening Abstracted [facility] Provider HEALTH MAINTENANCE Final Result from Last 3 Months or Most Recently Relevant to Health Maintenance Insurance [facility] MEDICARE MEDICARE [facility] MEDICARE Care Teams Vat Packer Relationship Specialty Start Date End Date Pj Fontana PA [address] [place] [address] PCP - General Internal Medicine 09/25/20
--- OUTSIDE RECORDS SUMMARY | 2024-08-16 18:18 | XMS_ITS | Encounter Summary ---
Author Organization [facility] [address] Address [address] [place] [address] Care Team Providers Care Radio Mechanic Helper Name Role Phone Pj Fontana Primary Care Provider [phone] [phone] Reason for Visit * Reason Comments Follow-up Numbness/tingling, p ain; loss of strength in thumb Follow-up Numbness/tingling, p ain Encounter Details Date Type Department Care Team (Latest Contact Info) Description 08/09/2024 9:45 AM EST Office Visit Orthopedic Surgery - [place] [address] [address] Rashawn Mccain MD 175 [facility] 140 [place], [place] [phone] Carpal tunnel syndrome on both sides (Primary Dx); Trigger finger, left index finger; Acquired trigger finger of left middle finger; Arthritis of carpometacarpal (CMC) joint of left thumb Social History Tobacco Use Types Packs/Day Years Used Date Smoking Tobacco: Former Cigarettes 1.5 20.6 0 11/05/1978 - 06/07/1999 Smokeless Tobacco: Never Alcohol Use Standard Drinks/Week Comments No 0 (1 standard drink = 0.6 oz pur e alcohol) Sex and Gender Information Value Date Recorded Sex Assigned at Not on file Legal Sex Male 5:29 AM EST Gender Identity Not on file Sexual Orientation Not on file documented as of this encounter Last Filed Vital Signs Vital Sign Reading Time Taken Comments Blood Pressure - - Pulse - - Temperature - - Respiratory Rate - - Oxygen Saturation - - Inhaled Oxygen Concentration - - Weight 111 kg (245 lb) 08/09/2024 9:52 AM EST Height 185.4 cm (6' 1 ) 08/09/2024 9:52 AM EST Body Mass Index 32.32 08/09/2024 9:52 AM EST documented in this encounter Progress Notes * Rashawn Mccain MD - 08/09/2024 9:45 AM EST Date: August 08, 2024 Diagnosis: bilateral carpal tunnel syndrome New complaint: left index and middle finger trigger finger, left thumb pain Last seen: 07/11/23 HPI: Jhonathan Blas is a 63 y.o. male presenting for followup regarding his bilateral carpal tunnel syndrome, he was scheduled for a right endoscopic carpal tunnel release next week. He says in the interval he has had improvement in his right hand numbness and tingling with use of braces although his symptoms have persisted and now his left side is slightly more symptomatic. He presents for a new issue today of left thumb pain. He says this developed in the last week without any known fall or injury. He does not have a history of thumb pain in the past. 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 He distantly is noticed triggering of his index and middle finger, this has been present for about a month and is slightly worse in the mornings. He says he intermittently has triggering has not had previous injections or surgery and does not find them all that bothersome. He is more concerned about the pain in his thumb. Objective Focused Exam: Left Upper Extremity Skin intact Pain with cmc grind test Positive tinels at carpal tunnel TTP at a1 lisa of the index and middle finger with 10 degree PIP contracture at both index and middle finger Demonstrates triggering of both index and middle finger Fires EPL/FPL/FDP/IO/APB SILT M/R/U palpable radial pulse Right Upper Extremity Skin intact Positive tinels at carpal tunnel Fires EPL/FPL/FDP/IO/APB palpable radial pulse RUE LUE Glass Engraver: 67 Glass Engraver: 70 Pinch: 17 Pinch: 16 Imaging: No new imaging. Medical Decision Making (base on 2 out of 3 elements): Problems Addressed: Moderate- 2 or more stable, chronic illnesses Tests Ordered and/or Reviewed: Low Risk Level: Moderate risk: counseling regarding moderate risk procedure Assessment: Jhonathan Blas presents with new issue of left index finger and middle finger trigger finger as well as pain at his thumb CMC joint consistent with arthritis. I discussed CMC arthritis and treatment options including use of NSAIDs bracing and corticosteroid injections. I discussed the risk and benefits of corticosteroid injections. I also discussed surgical treatment which would involve excision of the bone, he is only been symptomatic for a week we recommended a trial of a brace. He agreed with this plan of care. He has chronic kidney disease for which he cannot take NSAIDs We discussed his trigger fingers to his index and middle finger. I discussed his diagnosis and treatment options, I explained that trigger fingers are caused by mismatch in the tendon sheath and theytendon that causes inflammation and triggering with flexion. I discussed that corticosteroid injections and 50-60% of patients can resolve the pain and triggering and recommended a trial of a corticosteroid injection. He would like to avoid corticosteroid injections and does not believe the symptoms are severe enough to warrant intervention at this time. We spent some time discussing his worsening left hand pain, he says that his carpal tunnel syndromeis also more severe on the left side now than on the right side and he is wondering if he should dotreatment for his left side first. I discussed that typically we would treat his trigger fingers atthe same time as his carpal tunnel and I discussed operative treatment of trigger fingers. I also explained carpal tunnel release would not improve his thumb CMC joint pain. He voiced understanding the risks and benefits of operative and nonoperative treatment for both his carpal tunnel and triggerfingers, he would like to take some time to consider whether he would like to have his right or left side done first. He said he would like more time and I am happy to allow him to call or come back if he has any further questions or concerns. Plan: Left thumb CMC arthritis - Thumb CMC support brace activity modification - Declined corticosteroid injection Left index finger and middle finger trigger fingers - Declined corticosteroid injection Would like to continue with observation at this time Bilateral carpal tunnel syndrome - Scheduled for surgery next week on the right - He is considering possibly changing laterality to have his left side done first right now he would like to keep the right side Rashawn Mccain MD documented in this encounter Plan of Treatment Upcoming Encounters Date Type Department Care Team (Late st Contact Info) Description 08/22/2024 11:00 AM EDT Office Visit [facility] Hematology Oncology [address] [place] [phone] Gila Amaral, DO [address] [place] [address] 08/30/2024 10:00 AM EDT Office Visit Endocrinology [facility] 444 [place] [address] Micaela Allen PA 444 [place] [address] 09/01/2024 11:15 AM EDT Office Visit Orthopedic Surgery [facility] 250 175 [facility] 250 [place] [phone] Rashawn Mccain MD 175 [facility] 140 [place] [address] 09/14/2024 1:00 PM EDT Office Visit Vascular Surgery [facility] 300 [facility] 210 [place] [address] Hillary Valles MD 300 [facility] 210 [place] [address] 09/29/2024 10:45 AM EDT Office Visit Adult Medicine [facility] 444 [place] [address] Pj Fontana PA 444 [place] [address] 11/22/2024 1:30 PM EDT Ancillary Procedure [facility] 101 300 [facility] 101 [place] [address] 12/29/2024 8:00 AM EDT Appointment [facility] Ultrasound [address] [place] [address] 12/29/2024 9:30 AM EDT Appointment [facility] Ultrasound [address] [place] [address] 01/03/2025 10:45 AM EDT Office Visit Adult Medicine [facility] 444 [place] [address] Pj Fontana PA 444 [place] [address] 01/24/2025 10:30 AM EDT Office Visit Vascular Surgery - [place] [address] [facility] 210 [place] [address] Hillary Valles MD [address] [address] documented as of this encounter Visit Diagnoses Diagnosis Carpal tunnel syndrome on both sides- Primary Carpal tunnel syndrome Trigger finger, left index finger Acquired trigger finger of left middle finger Arthritis of carpometacarpal (CMC) joint of left thumb documented in this encounter Care Teams Radio Mechanic Helper Relationship Specialty Start Date End Date Pj Fontana PA [address] [place] [id number] PCP - General Internal Medicine 09/25/20 documented as of this encounter
--- OUTSIDE RECORDS SUMMARY | 2024-08-16 18:18 | XMS_ITS ---
Author Name [facility] Organization Unknown Care Team Organization Name Specialty Phone Email Start Date End [facility]
--- OUTSIDE RECORDS SUMMARY | 2024-08-16 18:18 | XMS_ITS | Encounter Summary ---
Author Organization [facility] Address [address] [place] [address] Care Team Providers Care Recreational Programs Director Name Role Phone Pj Fontana Primary Care Provider [phone] [phone] Reason for Visit * Reason Onset Date Comments durable medical equipment 08/16/2024 Encounter Details Date Type Department Care Team (Late st Contact Info) Description 08/16/2024 [facility]phone [facility] [place] [address] [place] [phone] Christi Perez NP [address] [place], [place] [phone] durable medical equipment Social History Tobacco Use Types Packs/Day Years [...] on file documented as of this encounter Progress Notes * Zaira Salinas - 08/16/2024 2:47 PM EDT Documentation request received via fax from [facility]. Fax on patient chart (ONBASE) documented in this encounter Plan of Treatment Upcoming Encounters Date Type Department Care Team (Late st Contact Info) Description 08/22/2024 11:00 AM EDT Office Visit [facility] Hematology Oncology [address] [place] [phone] Gila Amaral, DO [address] [place] [address] 08/30/2024 10:00 AM EDT Office Visit Endocrinology [facility] 444 [place] [address] Micaela Allen PA 444 [place] [address] 09/01/2024 11:15 AM EDT Office Visit Orthopedic Surgery [facility] 250 175 [facility] 250 [place] [address] Rashawn Mccain MD 175 [facility] 140 [place] [address] 09/14/2024 1:00 PM EDT Office Visit Vascular Surgery [facility] 300 [facility] 210 [place] [address] Hillary Valles MD 300 [facility] 210 [place] [address] 09/29/2024 10:45 AM EDT Office Visit Adult Medicine [facility] 444 [place] [address] Pj Fontana PA 444 [place] [address] 11/22/2024 1:30 PM EDT Ancillary Procedure [facility] 101 300 [facility] 101 [place] [address] 12/29/2024 8:00 AM EDT Appointment [facility] Ultrasound [address] [place] [address] 12/29/2024 9:30 AM EDT Appointment [facility] Ultrasound [address] [place] [address] 01/03/2025 10:45 AM EDT Office Visit Adult Medicine [facility] 444 [place] [address] Pj Fontana PA 444 [place] [address] 01/24/2025 10:30 AM EDT Office Visit Vascular Surgery [facility] [address] [facility] 210 [place] [address] Hillary Valles MD [address] [address] documented as of this encounter Visit Diagnoses Not on filedocumented in this encounter Care Teams Recreational Programs Director Relationship Specialty Start Date End Date Pj Fontana PA [address] [place] [id number] PCP - General Internal Medicine 09/25/20 documented as of this encounter
--- OUTSIDE RECORDS SUMMARY | 2024-08-16 18:18 | XMS_ITS | Encounter Summary ---
Author Organization [facility] Address [address] [place] [address] Care Team Providers Care Lunch Cook Name Role Phone Pj Fontana Primary Care Provider [phone] [phone] Reason for Visit * Reason Onset Date Comments GLUCOSE READINGS 08/14/2024 Encounter Details Date Type Department Care Team (Late st Contact Info) Description 08/14/2024 Telephone Endocrinology - [place] 444 [place] [phone] Micaela Allen PA 444 [place], [place] [phone] GLUCOSE READINGS Social History Tobacco Use Types Packs/Day Years [...] as of this encounter Progress Notes * Jazmine Nielsen RN - 08/14/2024 3:48 PM EDT Called and spoke with patient BS at 5 am- 60, denies symptoms, took glucose tab, did not cross check Advise to do so prior to treating especially if asx Pt stopped taking Glipzide x 2-3 weeks If BS > 180 will take half of glipizide but then BS will tank Highest glucose reading 250 Pt requesting blood work Pt believes he may have reactive hypoglycemia Please advise * Juan Green - 08/14/2024 11:32 AM EDT Pt calling to report to provider that he has been experiencing up and down glucose readings. He says he hasn't been able to sleep due to this. The highest reading over this weekend was 250 and the lowest reading was around 55, and it has been this way for the past few days. Please advise ? [phone] documented in this encounter Plan of Treatment Upcoming Encounters Date Type Department Care Team (Late st Contact Info) Description 08/22/2024 11:00 AM EDT Office Visit [facility] Hematology Oncology [address] [place] [address] Gila Amaral, DO [address] [place] [address] 08/30/2024 10:00 AM EDT Office Visit Endocrinology - [place] 444 [place] [address] Micaela Allen PA 444 [place] [address] 09/01/2024 11:15 AM EDT Office Visit Orthopedic Surgery [facility] 250 175 [facility] 250 [place] [phone] Rashawn Mccain MD 175 [facility] 140 [place] [address] 09/14/2024 1:00 PM EDT Office Visit Vascular Surgery [facility] 300 [facility] 210 [place] [phone] Hillary Valles MD 300 [facility] 210 [place] [address] 09/29/2024 10:45 AM EDT Office Visit Adult Medicine [facility] 444 [place] [address] Pj Fontana PA 444 [place] [address] 11/22/2024 1:30 PM EDT Ancillary Procedure [facility] 101 300 [facility] 101 [place] [address] 12/29/2024 8:[address] [facility] Ultrasound [address] [place] [address] 12/29/2024 9:[address] [facility] Ultrasound [address] [place] [address] 01/03/2025 10:45 AM EDT Office Visit Adult Medicine [facility] [address] [place] [address] Pj Fontana PA [address] [place] [address] 01/24/2025 10:30 AM EDT Office Visit Vascular Surgery - [place] [address] [address] Hillary Valles MD [address] [address] documented as of this encounter Visit Diagnoses Not on filedocumented in this encounter Care Teams Lunch Cook Relationship Specialty Start Date End Date Pj Fontana PA [address] [place] [address] PCP - General Internal Medicine 09/25/20 documented as of this encounter
--- OUTSIDE RECORDS SUMMARY | 2024-08-16 18:18 | XMS_ITS | Encounter Summary ---
Author Organization [facility] Address [address] [place] [address] Care Team Providers Care Dental Surgery Doctor Name Role Phone Pj Fontana Primary Care Provider [phone] [phone] Reason for Visit * Reason Onset Date Comments Cancel surgery CTR right thand 08/15/2024 Encounter Details Date Type Department Care Team (Late st Contact Info) Description 08/15/2024 Telephone Orthopedic Surgery - [place] 250 175 [facility] [address] [place] [address] Rashawn Mccain MD 175 [facility] [address] [place] [address] Cancel surgery CTR right thand Social History Tobacco Use Types Packs/Day Years [...] as of this encounter Progress Notes * Janeen Patrick - 08/15/2024 2:31 PM EDT Patient is calling to Cancel his upcoming Surgery for CTR right hand this , 08/17, with Dr Mccain, as he states it is improving He can be reached @ [phone] . Thanks. documented in this encounter Plan of Treatment Upcoming Encounters Date Type Department Care Team (Late st Contact Info) Description 08/22/2024 11:00 AM EDT Office Visit [facility] Hematology Oncology [address] [place] [phone] Gila Amaral DO [address] [place] [address] 08/30/2024 10:00 AM EDT Office Visit Endocrinology [facility] 444 [place] [address] Micaela Allen PA 444 [place] [address] 09/01/2024 11:15 AM EDT Office Visit Orthopedic Surgery [facility] 250 175 [facility] 250 [place] [address] Rashawn Mccain MD 175 [facility] 140 [place] [address] 09/14/2024 1:00 PM EDT Office Visit Vascular Surgery [facility] 300 [facility] 210 [place] [address] Hillary Valles MD 300 [facility] 210 [place] [address] 09/29/2024 10:45 AM EDT Office Visit Adult Medicine [facility] 444 [place] [address] Pj Fontana PA 444 [place] [address] 11/22/2024 1:30 PM EDT Ancillary Procedure [facility] 101 300 [facility] 101 [place] [address] 12/29/2024 8:00 AM EDT Appointment [facility] Ultrasound [address] [place] [address] 12/29/2024 9:30 AM EDT Appointment [facility] Ultrasound [address] [place] [address] 01/03/2025 10:45 AM EDT Office Visit Adult Medicine [facility] 444 [place] [address] Pj Fontana PA 444 [place] [address] 01/24/2025 10:30 AM EDT Office Visit Vascular Surgery - [place] [address] [address] Hillary Valles MD [address] [address] documented as of this encounter Visit Diagnoses Not on filedocumented in this encounter Care Teams Dental Surgery Doctor Relationship Specialty Start Date End Date Pj Fontana PA [address] [place] [address] PCP - General Internal Medicine 09/25/20 documented as of this encounter
== END 2024-08-16 16:28 | disposition home or self-care (01) ==
PROVIDERS: PCP Physician Assistant Medical; Visit Provider Physician Assistant
DX: H10.9 Unspecified conjunctivitis (principal)

== ENCOUNTER 2024-12-05 10:23 | Outpatient (AMB) | payer BC, SELFPAY ==
[2024-12-05 10:46] VITALS: BP 130/62; PULSE 70; TEMP 36.7; O2SAT 97; BMI 32.1
--- NOTE | 2024-12-05 10:46 | MHC.OFFWIV ---
Intake Vital Signs 12/05/24 10:46 Height 6 ft 1 in Weight 243 lb 8 oz BMI 32.1 BP 130/62 Blood Pressure Location Rt brachial Position Sitting Pulse 70 Pulse Source Pulse Oximeter Temp 98.1 F Temp Source Oral Pulse Oximetry (%) 97 Oxygen Delivery Method Room Air Intake Visit Reasons: EP Pulled lt shoulder Intake Note: Patien present with left shoulder pain times 2 days, prior working in the yard Patient Tobacco Use Status: Former Tobacco user [employer] Information [employer] Required: No Allergies azithromycin (AZITHROMYCIN) Allergy (Intermediate, Verified 12/05/24 10:53) HIVES levofloxacin Allergy (Unknown, Verified 12/05/24 10:53) leg cramps lisinopril Adverse Reaction (Mild, Verified 12/05/24 10:53) Hives Erythrocin Allergy (Unknown, Uncoded 08/16/24 15:54) rash latex Allergy (Unknown, Uncoded 08/16/24 15:54) rash Do you need a note to return to daycare/school/sports/work: No HPI HPI Comments History of Present Illness Details History of Present Illness - The patient is a 64-year-old male presenting with left shoulder pain. - The pain began after doing yard work 2 days ago, where he pushed against the ground with his left hand, experiencing pain in the shoulder area. - Initially, the pain was manageable, but it worsened significantly by yesterday, restricting arm movement, especially overhead and behind the back. - The patient attempted to manage the pain with Advil, but it was ineffective. - Due to Chronic Kidney Disease Stage 3, the patient is advised against using NSAIDs - The patient has used Salonpas patches for pain relief, which provided some heat therapy. Physical Exam General: Cooperative, healthy appearing, comfortable, no acute distress and well developed Orientation: Patient oriented x3 Limitations: Limitations in left arm movement Head: Normal to inspection Ears: Hearing grossly normal bilaterally Nose: Normal External nose present Face and sinus: Normal facial exam Eyes: Appearance normal, both eyes and all related structures Neck: Normal visual inspection and limited ROM due to pain Respiratory: Normal respiratory effort and able to speak in complete sentences. Skin: No rashes or lesions noted Neuro: Patient oriented x3 Extremities: Normal to inspection, left shoulder ttp at AC joint, ROM limited, cannot perform lift off or externally rotate or abduct past 90 degrees, + empty can. PFSH Social History Patient Tobacco Use Status: Former Tobacco user Review of Systems Const All systems reviewed & are unremarkable except as noted in HPI and below Physical Exam Vital Signs: Last Vital Signs Temp 98.1 F 12/05/24 10:46 Pulse 70 12/05/24 10:46 BP 130/62 12/05/24 10:46 Pulse Ox 97 12/05/24 10:46 Oxygen Delivery Method Room Air 12/05/24 10:46 BMI result Body Mass Index 32.1 Assessment & Plan Assessment & Plan (1) Left anterior shoulder pain: Code(s): M25.512 - Pain in left shoulder Plan: Plan - An x-ray of the left shoulder was ordered to assess for any structural damage, including acromioclavicular joint separation, rotator cuff injury or tendonitis, difficult to ascertain as pt unable to perform most testing. With the mechanism of injury, most likely tendonitis. - The patient was advised to use a sling to support the shoulder and reduce pain by minimizing movement. Did caution him to wean himself off of the sling over the next 2 weeks as well as doing [id number] exercises twice a day to reduce the risk of frozen shoulder. - Voltaren gel was recommended for topical pain relief due to the patient's CKD Stage 3, avoiding oral NSAIDs. - Ice application was suggested to reduce inflammation. - Referral to an donation specialist was advised for further evaluation and management if conservative measures fail. Patient was informed and verbally consented to the use of an ambient scribe for clinic note documentation during this visit. (2) Left shoulder tendonitis: Code(s): M77.8 - Other enthesopathies, not elsewhere classified Plan: as above Orders: Orders XR shoulder LT min 2V Today M25.512 - Pain in left shoulder Coding Level of Care Code New Pt Level 4 (32475) Diagnoses Left anterior shoulder pain M25.512 Left shoulder tendonitis M77.8
--- OUTSIDE RECORDS SUMMARY | 2024-12-05 11:30 | XMS_ITS | Clinical Summary ---
Author Organization [facility] Address [address] [place] [phone] Phone Care Team Providers Care Design Assistant Name Role Phone Pj Fontana Primary Care Provider [phone] Allergies Active Allergy Reactions Criticality Noted Date Comments Clindamycin 12/26/2019 Metallic taste Erythromycin Rash 01/10/2011 Latex Rash 08/06/2015 Levofloxacin Weakness Medium 08/02/2019 Lisinopril Numbness 05/17/2022 Medications albuterol HFA (PROAIR HFA ; PROVENTIL HFA ; VENTOLIN HFA) 90 mcg/actuation inhaler INHALE 2 PUFFS INTO THE LUNGS EVERY 6 HOURS NEEDED FOR COUGH OR WHEEZING OR SHORTNESS OF BREATH OR CHEST TIGHTNESS 8.5 g 2 4 Active blood-glucose meter kit Use to check blood sugars 3 times daily 0 Active blood-glucose sensor (FREESTYLE CHAPO 3 PLUS SENSOR MISC) 1 each by Not Applicable route. See Admin Instructions. 4 Active thiamine 100 mg tablet Take 1 tablet (100 mg total) by mouth 1 (one) time each day. 1 Active calcium carbonate-vitamin D 600 mg-10 mcg (400 unit) per tablet Take 1 tablet by mouth 2 (two) times a day. Active cetirizine (ZyrTEC) 10 mg tablet Take 1 tablet (10 mg total) by mouth 1 (one) time each day if needed. 4 Active diclofenac (Voltaren Arthritis Pain) 1 % topical gel Apply 2 g topically 4 (four) times a day if needed (arthritis pain). to affected area on hands/wrists 0 Active dilTIAZem XR (DILT-XR) 240 mg 24 hr capsule Take 1 capsule (240 mg total) by mouth 1 (one) time each day. 4 Active LORazepam (ATIVAN) 0.5 mg tablet Take 1 tablet (0.5 mg total) by mouth 1 (one) time each day if needed for anxiety. 4 Active metoclopramide (REGLAN) 10 mg tablet Take 1 tablet (10 mg total) by mouth every 6 (six) hours if needed (NAUSEA OR VOMITING). 4 Active omega-3 acid ethyl esters (LOVAZA) 1 gram capsule Take 2 capsules (2,000 mg total) by mouth. 3 Active senna-docusate (Stimulant Laxative Plus) 8.6-50 mg per tablet Take 1 tablet by mouth at bedtime. 4 Active triamcinolone (KENALOG) 0.1 % cream Apply to affected areas one or two times per day for two to four weeks 4 Active metFORMIN (GLUCOPHAGE) 500 mg tablet Take 2 tablets (1,000 mg total) by mouth 2 (two) times a day with meals. WITH BREAKFAST AND DINNER 360 tablet 1 5 Active Accu-Chek Fastclix Lancet Drum lancets USE TO CHECK BLOOD SUGAR THREE TIMES DAILY 270 each 1 5 Active folic acid (FOLVITE) 1 mg tablet TAKE 1 TABLET BY MOUTH DAILY 90 tablet 1 5 Active blood sugar diagnostic (Contour Next Test Strips) test strip USE TO TEST BLOOD SUGAR THREE TIMES DAILY 300 strip 1 5 Active magnesium oxide 500 mg magnesium tablet Take 2 tablets by mouth 2 (two) times a day. 360 tablet 3 5 Active losartan (COZAAR) 50 mg tablet TAKE 1 TABLET BY MOUTH DAILY 90 tablet 3 5 Active atorvastatin (LIPITOR) 20 mg tablet TAKE 1 TABLET BY MOUTH DAILY 90 tablet 3 5 Active omeprazole (PriLOSEC) [address] capsule Take 1 capsule (20 mg total) by mouth 1 (one) time each day before breakfast. for 360 days 90 each 1 5 026 Active Cloud LogisticsStyle Chapo 3 Plus Sensor deviceIndications: Diabetic polyneuropathy associated with type 2 diabetes mellitus ([facility] V24, [facility] V28) APPLY 1 SENSOR EVERY 15 DAYS 6 each 1 5 Active Hospital, Clinic, or Other Facility Administered Medication Ordered Dose Route Frequency Start Date End Date Status perflutren lipid microsphere (DEFINITY) 1.3 mL in sodium chloride 0.9% 8.7 mL injection 10 mL IV Once in imaging 11/22/2024 11/22/2024 End ed Active Problems Problem Noted Date Diagnosed Date Carpal tunnel syndrome on both sides 07/11/2024 Obstructive sleep apnea 04/02/2022 Nocturnal hypoxia 02/28/2022 Overview (04/19/2024): Overnight oximetry on 02/06/2022 shows: 1. Lowest oxygen 85%. 2. Basal oxygen is 92% 3. Time under 88% is 15 minutes. supplemental oxygen may be indicated Esophageal dysmotility 11/04/2021 [place] grade A esophagitis 11/04/2021 Left elbow pain 07/08/2021 Right carpal tunnel syndrome 07/08/2021 Aortic dilatation ([place] V24) 11/10/2020 Chronic anemia 08/02/2019 Trigger finger, left index finger 01/07/2017 Overview (04/19/2024): Noted 2016 [facility] Home Sleep Apnea Test: Date 04/02/2022; BMI 34.9; AHI 12; average oxygen saturation 92% (lowest 80% without saturations <88% for 5% or more of study) - Obstructive Sleep Apnea - mild; without sleep related hypoventilation by 2021 home sleep apnea test. Diabetic polyneuropathy asso ciated with type 2 diabetes mellitus ([facility] V24, [facility] V28) 07/09/2016 Varicose veins of leg with edema 07/09/2016 Condition not found 11/29/2015 Overview (04/19/2024): Varicose veins CKD (chronic kidney disease) stage 3, GFR 30-59 ml/min ([facility] V24, [facility] V28) 07/22/2015 Diabetes mellitus ([place] V24, [place] V28) 09/2014 Hyperlipidemia 01/05/2012 Diabetes type 2, controlled ([place] V24, [facility] V28) 05/05/2011 Fatty liver 01/21/2011 Hypertriglyceridemia 01/13/2011 Obesity 01/13/2011 Chronic back pain 01/10/2011 HTN (hypertension) 01/10/2011 Encounters Date Type Department Care Team Description 11/23/2024 8:30 AM EDT Procedure visit Vascular Surgery [facility] [address] [place] [phone] Gopal Riggs MD Varicose veins of left lower extremity with pain 11/22/2024 1:30 PM EDT Ancillary Procedure [facility] [address] [place] [phone] Aortic dilatation ([place] V24); Thoracic aortic aneurysm without rupture, unspecified part ([place] V24) 2024 1:30 PM EDT Office Visit Orthopedic Surgery [facility] [address] [facility] [address] [place] [phone] Charly Lozada DPM Controlled type 2 diabetes with neuropathy ([place] V24, [place] V28) (Primary Dx); Pain in both feet; Metatarsalgia of right foot 10/27/2024 9:40 AM EDT Office Visit Endocrinology [address] [phone] Micaela Allen PA Controlled type 2 diabetes mellitus without complication, without long-term current use of insulin ([place] V24, [place] V28) (Primary Dx); Primary hypertension; Mixed hyperlipidemia 10/16/2024 2:53 PM EDT - 10/16/2024 11:59 PM EDT Hospital Encounter [facility] Neurodiagnostic [address] [place] [phone] Carpal tunnel syndrome on both sides Discharge Disposition: Home or Self Care 10/13/2024 2:39 PM EDT - 10/13/2024 8:02 PM EDT Emergency [facility] Emergency [address] [place] [phone] Remy Araujo MD Right upper quadrant abdominal pain (Primary Dx) Discharge Disposition: Home or Self Care 10/06/2024 Telephone Vascular Surgery [address] [phone] Gopal Riggs MD Provider call Back 09/29/2024 10:45 AM EDT Office Visit [address] [phone] Pj Fontana PA Controlled type 2 diabetes mellitus without complication, without long-term current use of insulin ([facility] V24, [facility] V28) (Primary Dx); Stage 3 chronic kidney disease, unspecified whether stage 3a or 3b CKD ([facility] V24, [facility] V28); Aortic dilatation ([facility] V24); Type 2 diabetes mellitus without complication, without long-term current use of insulin ([facility] V24, [facility] V28); Primary hypertension; Mixed hyperlipidemia; Hypertriglyceridemia; Obstructive sleep apnea; Screening for malignant neoplasm of colon; Fatty liver; Diabetic polyneuropathy associated with type 2 diabetes mellitus ([facility] V24, [facility] V28); Carpal tunnel syndrome on both sides 09/19/2024 Telephone Vascular Surgery [address] [phone] Hillary Valles MD Provider Call Back 09/19/2024 Telephone Vascular Surgery [address] [phone] Adenike Guthrie [place] 09/14/2024 1:00 PM EDT Office Visit Vascular [address] [phone] Hillary Valles MD Varicose veins of bilateral lower extremities with pain (Primary Dx); Venous insufficiency of both lower extremities 09/08/2024 10:15 AM EDT Office Visit [facility] Hematology Oncology [address] [place] [address] Gila Amaral DO Anemia of chronic disease (Primary Dx) from Last 3 Months Immunizations Name Administration [...] History Surgery Date Site/Laterality Comments APPENDECTOMY PROCEDURE: OR APPENDECTOMY HERNIA REPAIR PROCEDURE: HISTORICAL HERNIA REPAIR/UMB OTHER SURGICAL HISTORY PROCEDURE: ---- OTHER ----; COMMENT: deviated septum COLONOSCOPY 05/11/2011 PROCEDURE: OR COLONOSCOPY FLX DX W/COLLJ SPEC WHEN PFRMD; [...] 01/21/2011 DX:Fatty liver Diabetes type 2, controlled ([facility] V24, [facility] V28) 05/05/2011 DX:Diabetes type 2, controll ed ([facility]) Hyperlipidemia 01/05/2012 DX:Hyperlipidemi a Diabetes mellitus ([facility] V 24, [facility] V28) 10/08/2014 DX:Diabetes mellitus (HCC) CKD (chronic kidney disease) stage 3, GFR 30-59 ml/min ([facility] V24, [facility] V28) 07/22/2015 DX:CKD (chronic kidney disea se) stage 3, GFR 30-59 ml/min ([facility]) Varicose veins 11/29/2015 DX:Varicose vein s Diabetic polyneuropathy asso ciated with type 2 diabetes mellitus ([facility] V24, [facility] V28) 07/09/2016 DX:Diabetic polyneuropathy associated with type 2 diabetes mellitus ([facility]) Varicose veins of leg with edema 07/09/2016 DX:Varicose veins of leg with edema Trigger finger, left index finger 01/07/2017 DX:Trigger finger, left index finger; COMMENT: Noted 2016 Chronic anemia 08/02/2019 DX:Chronic anemi a Esophageal dysmotility 11/04/2021 DX:Esopha geal dysmotility [place] grade A esophagitis 11/04/2021 DX:[place] grade A esophagitis Asthma Dysphagia GERD (gastroesophageal [...] Sign Reading Time Taken Comments Blood Pressure 130/60 11/23/2024 8:24 AM EDT Pulse 72 11/23/2024 8:24 AM EDT Temperature 36.4 C (97.5 F) 10/27/2024 10:03 AM EDT Respiratory Rate 16 11/23/2024 8:24 AM EDT Oxygen Saturation 98% 10/27/2024 10:03 AM EDT Inhaled Oxygen Concentration - - Weight 112 kg (247 lb) 11/23/2024 8:24 AM EDT Height 185.4 cm (6' 1 ) 11/23/2024 8:24 AM EDT Body Mass Index 32.59 11/23/2024 8:24 AM EDT Plan of Treatment Upcoming Encounters Date Type Department Care Team (Late st Contact Info) Description 12/29/2024 8:00 AM EDT Appointment [facility] Ultrasound [address] [place] [address] 12/29/2024 9:30 AM EDT Appointment [facility] Ultrasound [address] [place] [address] 01/03/2025 10:45 AM EDT Office Visit Adult Medicine [address] [phone] Pj Fontana PA [address] [place] [address] 01/04/2025 9:00 AM EDT Appointment [facility] Endoscopy [address] [place] [phone] Minesh Soria MD 175 [facility] [address] [place] [address] 01/11/2025 8:30 AM EDT Ancillary Procedure [facility] [address] [facility] 101 [place] [address] 02/23/2025 1:00 PM EDT Office Visit Vascular Surgery - [place] [address] [facility] 210 [place] [address] Gopal Riggs MD 300 [facility] 210 [place] [address] 04/09/2025 12:45 PM EST Office Visit Adult Medicine [address] [phone] Pj Fontana PA [address] [place], [place] 05/11/2025 9:40 AM EST Office Visit Endocrinology [facility] [address] [place] [address] Micaela Allen PA [address] [place], [place] 07/03/2025 10:30 AM EST Office Visit [facility] [place] [phone] [place], [place] [phone] Pj Fontana PA [address] [place], [place] 2025 11:00 AM EDT Office Visit Orthopedic Surgery - [place] [phone] [phone] Charly Lozada, DPM [address] [address] Health Maintenance Due Date Last Done Comments Hepatitis A Vaccines (1 of 2 - Risk 2-dose series) 1977 Pneumococcal Vaccine: 50+ Years (1 of 2 - PCV) 1977 Zoster Vaccines (1 of 2) 1977 Hepatitis B Vaccines (1 of 3 - Risk 3-dose series) 2018 RSV Immunization Adult Patients (1 - Risk 60-74 years 1-dose series) 2018 Depression Screening 05/16/2022 Social Influencers of Health Screening 05/16/2022 Falls Risk Assessment 11/08/2023 COVID-19 Vaccine ( season) 2024 10/23/2021, 10/25/2020, 09/27/2020 Colorectal Cancer Screening: Colonoscopy 10/16/2024 10/16/2021 Diabetes: Annual Retina Eye Exam 01/04/2025 01/05/2024 Influenza Vaccine (Season Ended) 2025 02/20/2022, 04/14/2021, 04/05/2020, Additional history exists Diabetes: Blood Sugar Control Test (HGBA1C) 03/29/2025 09/27/2024, 06/28/2024, 04/04/2024, Additional history exists Diabetes: Annual Foot Exam 09/12/2025 09/12/2024, Diabetes: Annual Urine Albumin-Creatinine Ratio (uACR) 09/27/2025 09/27/2024, 06/28/2024, 04/04/2024 Diabetes: Annual GFR (Glomerular Filtration Rate) 10/13/2025 10/13/2024, 09/27/2024, 06/28/2024, Additional history exists Hypertension/CHF/CAD Annual BMP Blood Test 10/13/2025 10/13/2024, 09/27/2024, 06/28/2024, Additional history exists Cholesterol Screening (Lipid Panel) 09/27/2029 09/27/2024, 06/28/2024, 04/04/2024, Additional history exists DTaP,Tdap,and Td Vaccines (3 - Td or Tdap) 11/20/2031 11/19/2021, 05/05/2011 Hepatitis C Screening Completed 09/29/2011 Abdominal Aortic Aneurysm (AAA) Screen Discontinued HIB Vaccines Aged Out No longer eligi [...] age to complete this topic Meningococcal B Vaccine Aged Out No l onger eligible based on patient's age to complete this topic RSV Immunization Patients Under 20 months Aged Out No longer eligible based on patient's age to complete this topic Varicella Vaccines Aged Out No longer eligible based on patient's age to complete this topic Procedures Procedure Name Priority Date/Time Associated Diagnosis Comments EMG Routine 10/16/2024 3:39 PM EDT Carpal tunnel syndrome on both sides CT ABDOMEN PELVIS W CONTRAST STAT 10/13/2024 4:57 PM EDT BUNCH URINE CULTURE TUBE STAT 10/13/2024 1:52 PM EDT URINALYSIS WITH REFLEX MICROSCOPIC AND CULTURE STAT 10/13/2024 1:52 PM EDT CBC WITH AUTO DIFFERENTIAL STAT 10/13/2024 1:52 PM EDT URINALYSIS WITH REFLEX MICROSCOPIC AND CULTURE STAT 10/13/2024 1:52 PM EDT COMPREHENSIVE METABOLIC PANEL STAT 10/13/2024 1:52 PM EDT CBC AND DIFFERENTIAL STAT 10/13/2024 1:52 PM EDT CBC WITH AUTO DIFFERENTIAL Routine 09/27/2024 3:30 PM EDT Macrocytic anemia COMPREHENSIVE METABOLIC PANEL Routine 09/27/2024 3:30 PM EDT Controlled type 2 diabetes mellitus without complication, without long-term current use of insulin (CMS/HCC V24, CMS/HCC V28) HEMOGLOBIN A1C Routine 09/27/2024 3:30 PM EDT Controlled type 2 diabetes mellitus without complication, without long-term current use of insulin (CMS/HCC V24, CMS/HCC V28) LIPID PANEL WITH REFLEX TO DIRECT LDL Routine 09/27/2024 3:30 PM EDT Controlled type 2 diabetes mellitus without complication, without long-term current use of insulin (CMS/HCC V24, CMS/HCC V28) MICROALBUMIN CREATININE URINE RATIO Routine 09/27/2024 3:30 PM EDT Controlled type 2 diabetes mellitus without complication, without long-term current use of insulin (CMS/HCC V24, CMS/HCC V28) MAGNESIUM Routine 09/27/2024 3:30 PM EDT Magnesium deficiency CBC AND DIFFERENTIAL Routine 09/27/2024 3:30 PM EDT Macrocytic anemia DIABETES EYE EXAM Routine 01/05/2024 DIABETES FOOT EXAM Routine 08/06/2023 COLONOSCOPY Routine 10/16/2021 HEPATITIS C SCREENING Routine 09/29/2011 from Last 3 Months or Most Recently Relevant to Health Maintenance Results * EMG (10/16/2024 3:39 PM EDT) Narrative Luis Daniel Givens MD - 10/16/2024 4:22 PM EDT See report in chart review Procedure Note Luis Daniel Givens MD - 10/16/2024 See report in chart review us [facility]ME[facility] NEUROLOGY ORDERABLES Yin botello Result * CT Abdomen Pelvis w Contrast (10/13/2024 4:57 PM EDT) Anatomical Region Laterality Modality Body Computed Tomogra phy 10/13/2024 6:02 PM EDT Impressions 10/13/2024 6:02 PM EDT 1. No cause for patient's symptoms identified. No evidence of cholecystitis or renal obstruction. 2. Colonic diverticulosis without evidence of diverticulitis. 3. Oggc-gr-ritkvcko colonic stool burden. No bowel obstruction. This document has been electronically signed by: Cb Miranda MD on 10/13/2024 18:02:29 Narrative 10/13/2024 6:02 PM EDT INDICATION: Sharp right upper quadrant abdominal pain CT abdomen and pelvis with IV contrast. COMPARISON: None FINDINGS: Partially visualized lung bases are unremarkable. Well-defined hypoattenuating lesion present within the liver measuring up to 5 mm, too small to further characterize but likely representing a hepatic cyst. Normal gallbladder. Normal spleen. Normal pancreas. Normal adrenal glands. Symmetric renal enhancement. No hydronephrosis. Mild perinephric fat stranding bilaterally, nonspecific and most likely senescent. Appendix is not seen. No right lower quadrant or pericecal inflammatory changes. Mild distal colonic diverticulosis without evidence of diverticulitis. No bowel obstruction. Mild to moderate colonic stool burden. No mesenteric or retroperitoneal lymphadenopathy. Anterior hernia mesh repair along the anterior abdominal wall without evidence of failure. Mild aortoiliac atherosclerotic vascular calcifications. Normal appearance of the urinary bladder. No inguinal lymphadenopathy. Mild multilevel spondylosis. No acute fracture or suspicious bone lesion. Procedure Note Cb Miranda MD - 10/13/2024 INDICATION: Sharp right upper quadrant abdominal pain CT abdomen and pelvis with IV contrast. COMPARISON: None FINDINGS: Partially visualized lung bases are unremarkable. Well-defined hypoattenuating lesion present within the liver measuringup to 5 mm, too small to further characterize but likely representing a hepatic cyst. Normal gallbladder. Normal spleen. Normal pancreas. Normal adrenal glands. Symmetric renal enhancement. No hydronephrosis. Mild perinephric fat stranding bilaterally, nonspecific and most likely senescent. Appendix is not seen. No right lower quadrant or pericecal inflammatory changes. Mild distal colonic diverticulosis without evidence of diverticulitis. No bowel obstruction. Mild to moderate colonic stool burden. No mesenteric or retroperitoneal lymphadenopathy. Anterior hernia mesh repair along the anterior abdominal wall without evidence of failure. Mild aortoiliac atherosclerotic vascular calcifications. Normal appearance of the urinary bladder. No inguinal lymphadenopathy. Mild multilevel spondylosis. No acute fracture or suspicious bonelesion. IMPRESSION: 1. No cause for patient's symptoms identified. No evidence of cholecystitis or renal obstruction. 2. Colonic diverticulosis without evidence of diverticulitis. 3. Ouml-hz-eixxhiix colonic stool burden. No bowel obstruction. This document has been electronically signed by: Cb Miranda MD on 10/13/2024 18:02:29 Remy Araujo MD IM CT PROCEDURES Final Result * Urinalysis with reflex microscopic and culture (10/13/2024 1:52 PM EDT) Specific [place] Urine 1.007 1.003 - 1.030 LAB URINALYSIS - AUTOMATED METHOD 10/13/2024 2:33 PM EDT [facility] pH, Urine 7.0 5.0 - 8.0 pH LAB URINALYSIS - AUTOMATED METHOD 10/13/2024 2:33 PM EDT [facility] Leukocytes, Urine Negative Negative LAB URINALYSIS - AUTOMATED METHOD 10/13/2024 2:33 PM EDT [facility] Nitrite, Urine Negative Negative LAB URINALYSIS - AUTOMATED METHOD 10/13/2024 2:33 PM T [facility] Protein, Urine Negative <=Trace mg/dL LAB URINALYSIS - AUTOMATED METHOD 10/13/2024 2:33 PM EDT [facility] Glucose, Urine Negative Negative mg/dL LAB URINALYSIS - AUTOMATED METHOD 10/13/2024 2:33 PM T [facility] Ketones, Urine Negative Negative mg/dL LAB URINALYSIS - AUTOMATED METHOD 10/13/2024 2:33 PM [facility] Urobilinogen, Urine 0.2 0.2 - 1.0 mg/dL LAB URINALYSIS - AUTOMATED METHOD 10/13/2024 2:33 PM T [facility] Bilirubin, Urine Negative Negative LAB URINALYSIS - AUTOMATED METHOD 10/13/2024 2:33 PM T [facility] Blood, Urine Negative Negative LAB URINALYSIS - AUTOMATED METHOD 10/13/2024 2:33 PM T [facility] Urine Urine specimen obtained by clean catch procedure / Unknown Non-blood Collection / Unknown 10/13/2024 1:52 PM EDT 10/13/2024 2:23 PM EDT us Remy Araujo MD LAB URINE ORDERABLES Final Res ult [facility] [address] [place] [address], * Bunch urine culture tube (10/13/2024 1:52 PM EDT) Extra Tube Hold for add-ons. 10/13/2024 4:01 PM EDT [facility] Comment:Auto resulted. Urine Urine specimen obtained by clean catch procedure / Unknown Non-blood Collection / Unknown 10/13/2024 1:52 PM EDT 10/13/2024 2:23 PM EDT us Remy Araujo MD LAB URINE ORDERABLES Final Res ult [facility] [address] [place] [address], [place] [phone] * (ABNORMAL) CBC auto differential (10/13/2024 1:52 PM EDT) Only the most recent of2 resultswithin the time period is included. WBC 9.4 4.8 - 10.8 K/mcL LAB HEMETOLOGY METHOD 10/13/2024 2:33 PM EDT [facility] RBC 4.00(L) 4.50 - 5.50 M/mcL LAB HEMETOLOGY METHOD 10/13/2024 2:33 PM EDT [facility] Hemoglobin 13.4(L) 13.5 - 17.5 g/dL LAB HEMETOLOGY METHOD 10/13/2024 2:33 PM EDT [facility] Hematocrit 39.9(L) 42.0 - 54.0 % LAB HEMETOLOGY METHOD 10/13/2024 2:33 PM EDT [facility] MCV 100.5(H) 79.0 - 98.0 FL LAB HEMETOLOGY METHOD 10/13/2024 2:33 PM EDT [facility] MCH 33.8(H) 27.0 - 32.0 pcg LAB HEMETOLOGY METHOD 10/13/2024 2:33 PM EDT [facility] MCHC 33.6 32.0 - 37.0 g/dL LAB HEMETOLOGY METHOD 10/13/2024 2:33 PM EDT [facility] RDW 11.9 11.0 - 15.0 % LAB HEMETOLOGY METHOD 10/13/2024 2:33 PM EDT [facility] Platelets 195 130 - 400 K/mcL LAB [facility]OLOGY [facility] MPV 9.6 7.0 - 11.0 FL LAB HEMETOLOGY METHOD 10/13[facility]24 [facility] NRBC 0.0 <1.0 % LAB HEMETOLOGY METHOD 10/13/2024 2:33 PM EDT [facility] NRBC Absolute 0.00 <0.10 K/mcL LAB HEMETOLOGY METHOD 10/13/2024 2:33 PM [facility] Neutrophils Relative 77.0 % LAB HEMETOLOGY METHOD 10/13/2024 2:33 PM [facility] Lymphocytes Relative 14.5 % LAB HEMETOLOGY METHOD 10/13/2024 2:33 PM [facility] Monocytes Relative 6.7 % LAB HEMETOLOGY METHOD 10/13/2024 2:33 PM [facility] Eosinophils Relative 1.1 % LAB HEMETOLOGY METHOD 10/13/2024 2:33 PM [facility] Basophils Relative 0.4 % LAB HEMETOLOGY METHOD 10/13/2024 2:33 PM [facility] Immature Granulocytes Relative 0.3 % LAB HEMETOLOGY METHOD 10/13/2024 2:33 PM [facility] Neutrophils Absolute 7.21(H) 1.50 - 7.00 K/mcL LAB HEMETOLOGY METHOD [facility]24 [facility] Lymphocytes Absolute 1.36 1.00 - 5.00 K/mcL LAB HEMETOLOGY METHOD 10/13/2024 2:33 PM [facility] Monocytes Absolute 0.63 0.20 - 1.00 K/mcL LAB HEMETOLOGY METHOD 10/13/2024 2:33 PM EDT [facility] Eosinophils Absolute 0.10 0.00 - 0.50 K/[facility] LAB HEMETOLOGY METHOD 10/13/2024 2:33 PM EDT [facility] Basophils Absolute 0.04 0.00 - 0.20 K/[facility] LAB HEMETOLOGY METHOD 10/13/2024 2:33 PM EDT [facility] Immature Granulocytes Absolute 0.03 0.00 - 0.03 K/[facility] LAB HEMETOLOGY METHOD 10/13/2024 2:33 PM EDT [facility] Blood Venous blood specimen / Unknown Venipuncture / Unknown 10/13/2024 1:52 PM EDT 10/13/2024 2:26 PM EDT us Remy Araujo MD LAB BLOOD ORDERABLES Final Res ult [facility] [address] [place] [address], [place] [phone] * (ABNORMAL) Comprehensive metabolic panel (10/13/2024 1:52 PM EDT) Only the most recent of2 resultswithin the time period is included. Sodium 140 133 - 145 mmol/L LAB CHEMISTRY METHOD 10/13/2024 2:55 PM EDT [facility] Potassium 3.8 3.5 - 5.5 mmol/L LAB CHEMISTRY METHOD 10/13/2024 2:55 PM EDT [facility] Chloride 105 96 - 110 mmol/L LAB CHEMISTRY METHOD 10/13/2024 2:55 PM EDT [facility] CO2 28 21 - 32 mmol/L LAB CHEMISTRY METHOD 10/13/2024 2:55 PM EDT [facility] Anion Gap 7 3 - 11 LAB CHEMISTRY METHOD 10/13/2024 2:55 PM EDT [facility] Glucose 124(H) 70 - 100 mg/dL LAB CHEMISTRY METHOD 10/13/2024 2:55 PM [facility] BUN 21 5 - 25 mg/dL LAB CHEMISTRY METHOD 10/13/2024 2:55 PM [facility] Creatinine 1.09 0.70 - 1.30 mg/dL LAB CHEMISTRY METHOD 10/13/2024 2:55 PM [facility] eGFR 75 >=60 mL/min/1. 73m2 LAB CHEMISTRY METHOD 10/13/2024 2:55 PM [facility] Comment:Calculation based on the Chronic Kidney Disease Epidemiology Collaboration (CKD-EPI) equation refit without adjustment for race. BUN/Creatinine Ratio 19.3 LAB CHEMISTRY METHOD 10/13/2024 2:55 PM [facility] Calcium 8.9 8.5 - 10.5 mg/dL LAB CHEMISTRY METHOD 10/13/2024 2:55 PM [facility] AST (SGOT) 17 10 - 42 unit/L LAB CHEMISTRY METHOD 10/13/2024 2:55 PM [facility] ALT (SGPT) 25 10 - 60 unit/L LAB CHEMISTRY METHOD 10/13/2024 2:55 PM [facility] Alkaline Phosphatase 54 42 - 121 unit/L LAB CHEMISTRY METHOD 10/13/2024 2:55 PM [facility] Total Protein 7.4 6.0 - 8.0 g/dL LAB CHEMISTRY METHOD 10/13/2024 2:55 PM [facility] Albumin 4.1 3.2 - 5.0 g/dL LAB CHEMISTRY METHOD 10/13/2024 2:55 PM [facility] Total Bilirubin 0.5 0.0 - 1.4 mg/dL LAB CHEMISTRY METHOD 10/13/2024 2:55 PM [facility] Blood Venous blood specimen / Unknown Venipuncture / Unknown 10/13/2024 1:52 PM EDT 10/13/2024 2:26 PM EDT us Remy Araujo MD LAB BLOOD ORDERABLES Final Res ult Performing Organization Address City/[facility]/ZIP Co de Phone Number [facility] [address] [place] [address], [place] [phone] * Lipid panel with reflex to direct LDL (09/27/2024 3:30 PM EDT) Cholesterol 109 0 - 200 mg/dL LAB CHEMISTRY METHOD 09/27/2024 7:16 PM EDT [facility] Triglycerides 65 0 - 150 mg/dL LAB CHEMISTRY METHOD 09/27/2024 7:16 PM EDT [facility] HDL 48 >=40 mg/dL LAB CHEMISTRY METHOD 09/27/2024 7:16 PM EDT [facility] LDL Calculated 48 0 - 100 mg/dL LAB CHEMISTRY METHOD 09/27/2024 7:16 PM EDT [facility] VLDL Cholesterol Luis Eduardo 13 mg/dL LAB CHEMISTRY METHOD 09/27/2024 7:16 PM EDT [facility] Non HDL Chol. (LDL+VLDL) 61 <145 mg/dL LAB CHEMISTRY METHOD 09/27/2024 7:16 PM EDT [facility] Chol/HDL Ratio 2.3 0.0 - 4.4 LAB CHEMISTRY METHOD 09/27/2024 7:16 PM EDT [facility] Blood Venous blood specimen / Unknown Venipuncture / Unknown 09/27/2024 3:30 PM EDT 09/27/2024 3:30 PM EDT us Peggy ALMEIDA LAB BLOOD ORDERABLES Final Resul t Performing Organization Address [facility]/ZIP Co de Phone Number [facility] [address] [place] [address], [place] [phone] * (ABNORMAL) Microalbumin creatinine urine ratio (09/27/2024 3:30 PM EDT) Pathologist [facility] Creatinine, Urine 30.0 mg/dL LAB CHEMISTRY METHOD 09/27/2024 7:30 PM EDT [facility] Microalb, Ur 13.9 0.0 - 29.0 mg/L LAB CHEMISTRY METHOD 09/27/2024 7:30 PM EDT [facility] Microalb/Creat Ratio 46(H) <30 mg/g creat LAB CHEMISTRY METHOD 09/27/2024 7:30 PM EDT [facility] Urine Urine specimen obtained by clean catch procedure / Unknown Non-blood Collection / Unknown 09/27/2024 3:30 PM EDT 09/27/2024 3:30 PM EDT us Peggy ALMEIDA LAB URINE ORDERABLES Final Resul t Performing Organization Address City/[facility]/ZIP Co de Phone Number [facility] [address] [place] [address], [place] [phone] * (ABNORMAL) Magnesium (09/27/2024 3:30 PM EDT) [facility] Magnesium 1.7(L) 1.9 - 2.6 mg/dL LAB CHEMISTRY METHOD 09/27/2024 7:08 PM EDT [facility] Blood Venous blood specimen / Unknown Venipuncture / Unknown 09/27/2024 3:30 PM EDT 09/27/2024 3:30 PM EDT Swyzzle Sood PA LAB BLOOD ORDERABLES Final Resul t [facility] [address] [place] [address], [place] [phone] * (ABNORMAL) Hemoglobin A1c (09/27/2024 3:30 PM EDT) Pathologist [facility] Hemoglobin A1C 6.6(H) <6.5 % LAB CHEMISTRY METHOD 09/27/2024 8:06 PM EDT [facility] Mean Bld Glu Estim. 143 mg/dL LAB CHEMISTRY METHOD 09/27/2024 8:06 PM EDT [facility] Blood Venous blood specimen / Unknown Venipuncture / Unknown 09/27/2024 3:30 PM EDT 09/27/2024 3:30 PM EDT Peggy Barrie ALMEIDA LAB BLOOD ORDERABLES Final Resul t [facility] [address] [place] [address], [place] [phone] * Diabetes Eye Exam (01/05/2024) [facility] Diabetes: Annual Retina Eye Exam Abstracted Result [facility] Historical Provider HEALTH MAINTENANCE Final Result * Diabetes Foot Exam (08/06/2023) [facility] Diabetes: Annual Foot Exam Abstracted Result [facility] Provider HEALTH MAINTENANCE Final Result * Colonoscopy (10/16/2021) [facility] Colonoscopy No interpretation , abstracted Anatomical Region Laterality Modality Other Result [facility] Provider HEALTH MAINTENANCE Final Result * Hepatitis C Screening (09/29/2011) [facility] Hepatitis C Screening Abstracted Result [facility] Historical Provider HEALTH MAINTENANCE Final Result from Last 3 Months or Most Recently Relevant to Health Maintenance Insurance [facility] Care Teams Design Assistant Relationship Specialty Start Date End Date Pj Fontana PA [address] [place] [phone] PCP - General Internal Medicine 09/25/20
--- OUTSIDE RECORDS SUMMARY | 2024-12-05 11:30 | XMS_ITS | Data Portability ---
Author Organization JUAN PABLO [facility] [facility] [id number] Address [address] [place] [address] Assessment No assessment recorded. Plan of Treatment Reminders Order Date Submit Date Provider Last Modified By Organization Details Last Modified Time Details Appointments None recorded. Lab None recorded. Referral None recorded. Procedures None recorded. Surgeries None recorded. Imaging None recorded. Medication Orders triamterene 37.5 mg-hydrochl orothiazide 25 mg tablet 2021 [facility][id number], [address], [place], [phone], 16:46:21 prednisone 10 mg tablet 2021 [facility] #[id number], [address], [place], [phone], 16:46:19 Patient TargetsNo targets recorded. Patient Instructions Encounter Date Encounter Id Patient Instructions Last Modified By Organization Details Last Modified Time 05/12/2022 [id number] angioedema: care instructions [email or web address] Not available 05/12/2022 16:46:08 I want you [...] 4. Swelling anywhere else on your body. [email or web address] Not available 05/12/2022 16:46:06 Reason for Referral None Reported. Problems Name Problem SNOMED Code Status Onset Date Resolution Date Notes Provider Name and Address Organization Details Recorded Time Diabetes mellitus 13197701 Active 2021 LILA gilmore PA - [facility] 2 16:07:17 Hypertensive disorder 79289951 Active 2021 LILA gilmore PA - [facility] 2 16:07:24 Hyperlipidemia 49671694 Active 2021 LILA gilmore PA - [facility] 2 16:07:32 Gastroesophage al reflux disease 956699703 Active 2021 LILA gilmore PA - [facility] 2 16:07:38 Problem Notes None recorded. Procedures Surgical History Date Name Laterality Status Provider Name and Address Organization Details Recorded Time Appendectomy completed LILA HAGEN PA [place] [facility] 05/12/2022 16:09:22 manipulation of displaced [...] Name and Address Organization Details Recorded Time 57053 erythromy rico medicatio n rash Not available Not available 05/12/2022 4053 RxNorm LILA HAGEN null, PA - [facility] 2 16:01:28 71086 latex environme nt,medica tion rash Not available Not available 05/12/2022 78127 91 RxNorm LILA LANDEROSMERRY null, PA - [facility] 2 16:01:39 22725 levofloxa rico medicatio n muscle cramps Not available Not available 05/12/2022 65790 RxNorm LILA LANDEROSMERRY null, PA - [facility] 2 16:01:55 93235 clindamyc in Not available other Not available [...] propionate 50 mcg/actuatio n nasal spray,suspen damien Rusk 1 spray every day by intranasal route. [...] Updated DateTime 2 185.42 cm 35 kg/m2 139895. 98 g 97.4 [degF] 18 /min 99 % 99 % 75 /min 148 mm[Hg] 80 mm[Hg] LILA ALMEIDA [employer] 16:11:55 Social History Question Answer Notes LastModified by Fastr Details LastModified Time Tobacco Smoking Status Never Smoker LILA gilmore e27 05/12/2022 16:09:09 Have You Had Direct Contact, Or Contact During Intimacy, With Monkeypox Rash, Scabs, Or Body Fluids From A Person With Monkeypox? No Information not available 05/12/2022 Have You Recently Traveled Abroad? No Information not available 05/12/2022 Sex: Unknown Functional Status Question Answer Note LastModified by Fastr Details LastModified Time Do you use any illicit or recreational drugs? No Information not available 05/12/2022 What is your level of alcohol consumption? Occasional Information not available 05/12/2022 Mental Status None recorded. 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 T78.3XXA Hypertensive disorder 38 065917 I10 Health Concerns Section Related Observation LastModified by Organization Detai ls LastModified Time None Recorded Concern Status LastModified by Organization Details LastModified Time None Recorded Advance Directives Directive None Recorded Payers Insurance Date Sequence Insurance Name Policy Number Policy Valle Covered Member ID Valle Member ID Guarantor Name 05/12/2022 1 [facility] [employer] - [employer] (HMO) [id number] Jhonathan Blas [id number] Jhonathan Blas 05/13/2022 1 [place] Jhonathan Blas [id number] Jhonathan Blas Notes Date Note Type [...] started any new medications. JUAN PABLO [place], [address], [place] - [facility] 05/13/2022 08:31:58
== END 2024-12-05 11:32 | disposition home or self-care (01) ==
PROVIDERS: PCP Physician Assistant Medical; Visit Provider Physician Assistant
DX: M25.512 Pain in left shoulder (principal); M77.8 Other enthesopathies, not elsewhere classified

== ENCOUNTER 2024-12-05 10:23 | Outpatient (REF) | payer BC, SELFPAY ==
--- NOTE | ~2024-12-05 | XR_ITS ---
EXAMINATION: XR SHOULDER, LEFT CLINICAL INFORMATION: M25.512 - Pain in left shoulder COMPARISON: None available. TECHNIQUE: AP view in neutral internal rotation and Y-view of the left shoulder. FINDINGS: Degenerative changes in the common clavicular joint and the glenohumeral joint. No acute cortical disruption or gross malalignment. Well-corticated calcifications at the supraspinatus tendon insertion. No lytic or blastic lesions. XR/XR shoulder LT min 2V IMPRESSION: [id number]-yu-lbnrxiqy degenerative changes. Probable calcific tendinosis/tendinopathy, supraspinatus tendon.. Electronically signed by: Won Winn MD 12/05/2024 11:47 AM EDT
--- OUTSIDE RECORDS SUMMARY | 2024-12-05 12:37 | XMS_ITS ---
Author Name CRISP Organization Unknown Care Team Organization Name Specialty Phone Email Start Date End [facility]
== END 2024-12-05 10:24 | disposition home or self-care (01) ==
LOC: HO.HMGCX 10:23
PROVIDERS: PCP Physician Assistant Medical; Visit Provider Physician Assistant
DX: M25.512 Pain in left shoulder (principal)
CPT/HCPCS: 73030

== ENCOUNTER → 2024-12-05 11:23 | Outpatient (BNV) | payer BC, SELFPAY | PROVIDERS: PCP Physician Assistant Medical; Visit Provider Radiology Diagnostic Radiology | DX: M19.012 Primary osteoarthritis, left shoulder (principal) | CPT/HCPCS: 73030 ==